=== PATIENT | male | born 1955 | race Hispanic/Latino ===

== ENCOUNTER 2020-07-29 08:55 | Inpatient (IN) | payer OTHER ==
[~2020-07-29] VITALS: Ht 175.3 cm; Wt 94.3 kg
[2020-07-29] MEDS ORDERED: 0.9%NACL 100ML 100 ML IV ONE (09:20)
[2020-07-29] MEDS ORDERED: CEFTRIAXONE 2GM VIAL ONE (09:20)
[2020-07-29] MEDS ORDERED: DEXAMETHASONE SOD PHOSPHATE 10MG/ML 1ML VIAL ONE (09:20)
[2020-07-29] MEDS ORDERED: AZITHROMYCIN 500MG+NS 250ML 250 ML IV ONE (09:20)
[2020-07-29 09:27] LABS: BASOPHILS % (AUTO) 0.2 % (0.0-5.0); HEMATOCRIT 42.5 % (42-54); LYMPHOCYTES % (AUTO) 4.6 % (21.0-51.0); MEAN CORPUSCULAR HEMOGLOBIN 32.2 pg (27.0-33.0); MEAN CORPUSCULAR HGB CONC 35.1 g/dL (32.0-36.0); MEAN CORPUSCULAR VOLUME 91.8 fL (79-99); MONOCYTES % (AUTO) 4.8 % (3.0-13.0); NEUTROPHILS % (AUTO) 89.8 % (40.0-77.0); PLATELET COUNT (AUTO) 115 K/uL (130-400); RED BLOOD CELL COUNT(AUTO) 4.63 MIL/uL (4.50-6.20); RED CELL DISTRIBUTION WIDTH 13.7 % (11.0-15.5); WHITE BLOOD COUNT (AUTO) 10.8 K/uL (4.8-10.8)
[2020-07-29 09:32] LABS: INR 1.07 (0.85-1.15); PROTHROMBIN TIME 11.4 SEC (9.6-11.6)
[2020-07-29 09:33] LABS: PARTIAL THROMBOPLASTIN TIME 27.3 SEC (26.3-35.5)
[2020-07-29] MEDS ORDERED: 0.9%NACL 1000ML 1,000 ML IV ONE (09:37)
[2020-07-29 09:45] LABS: CREATININE 1.4 mg/dL (0.5-1.5); POTASSIUM 3.9 mmol/L (3.5-5.1)
[2020-07-29 09:46] LABS: ALBUMIN 2.7 g/dL (3.5-5.0); BILIRUBIN,TOTAL 1.8 mg/dL (0.2-1.0); TROPONIN I 0.48 ng/mL (0.00-0.06)
[2020-07-29 09:51] LABS: APPEARANCE,URINE Cloudy (CLEAR); BILIRUBIN,URINE Large (NEGATIVE); COLOR,URINE Dark Yellow (YELLOW); GLUCOSE, URINE (UA) TRACE mg/dL (NEGATIVE); KETONES,URINE Trace mg/dL (NEGATIVE); LEUKOCYTE ESTERASE ,URINE Trace (NEGATIVE); NITRATE,URINE Negative (NEGATIVE); OCCULT BLOOD,URINE Moderate (NEGATIVE); PH,URINE 5.5 (5.0-8.0); PROTEIN,URINE 300 mg/dL (NEGATIVE)
[2020-07-29 10:00] LABS: MUCUS,URINE Many LPF (None Seen)
[2020-07-29 10:01] LABS: RBC,URINE 0-1 /HPF (0-1)
[2020-07-29 10:02] LABS: BACTERIA,URINE Few /HPF (None Seen); WBC,URINE 0-1 /HPF (0-1)
[2020-07-29] MEDS: CEFTRIAXONE 1G VIAL IVP SCH ×2 (11:00→23:00)
[2020-07-29] MEDS ORDERED: ERGOCALCIFEROL (VITAMIN D2) 50,000 UNIT CAPSULE PO SCH (11:00)
[2020-07-29] MEDS: 0.9%NACL 1000ML 1,000 ML IV SCH (11:00)
[2020-07-29] MEDS ORDERED: LABETALOL 20MG SYG IV PRN (11:00)
[2020-07-29] MEDS ORDERED: HYDRALAZINE 20MG/ML VIAL IV PRN (11:00)
[2020-07-29 11:25] LABS: AMYLASE 51 U/L (25-115); LIPASE 105 U/L (114-286)
[2020-07-29 11:36] LABS: ABG BASE EXCESS -0.2 mmol/L (-2.0-3.0); ABG HCO3 22.6 mmol/L (21.0-28.0); ABG OXYGEN SATURATION 91.8 % (95.0-99.0); ABG PCO2 32 mmHg (35-48)
[2020-07-29] MEDS ORDERED: MAGNESIUM 2GM PREMIX 50ML 50 ML IV PRN (14:45)
[2020-07-29] MEDS ORDERED: GLUCAGON 1MG KIT 1 MG ML IM PRN (14:45)
[2020-07-29] MEDS ORDERED: DEXTROSE 50%-WATER 50 ML DISP.SYRIN IV PRN (14:45)
[2020-07-29] MEDS: INSULIN HUMULIN R 100 UNIT/ML 3ML SQ SCH ×2 (16:30→21:00)
[2020-07-29] MEDS ORDERED: ASCORBIC ACID 500 MG TAB ONE (18:01)
[2020-07-29] MEDS ORDERED: ZINC SULFATE 220 CAPSULE ONE (18:01)
[2020-07-29] MEDS: DOXYCYCLINE HYCLATE 100 MG TABLET PO SCH (21:00)
[2020-07-29] MEDS: FAMOTIDINE 20MG TAB PO SCH (21:00)
[2020-07-29] MEDS: ENOXAPARIN SODIUM 120 MG/0.8ML SQ SCH (21:00)
[2020-07-29] MEDS ORDERED: ENOXAPARIN SODIUM 1 MG/KG SQ SCH (21:00)
[2020-07-29] MEDS ORDERED: FAMOTIDINE 20MG TAB ONE (21:53)
[2020-07-29] MEDS ORDERED: DOXYCYCLINE 100MG+NS 250ML 250 ML IV ONE (21:54)
[2020-07-29] MEDS ORDERED: ENOXAPARIN SODIUM 120 MG/0.8ML SQ ONE (21:55)
[2020-07-30 04:40] LABS: BASOPHILS % (AUTO) 0.1 % (0.0-5.0); HEMATOCRIT 41.5 % (42-54); LYMPHOCYTES % (AUTO) 4.8 % (21.0-51.0); MEAN CORPUSCULAR HEMOGLOBIN 31.7 pg (27.0-33.0); MEAN CORPUSCULAR HGB CONC 34.5 g/dL (32.0-36.0); MONOCYTES % (AUTO) 5.1 % (3.0-13.0); NEUTROPHILS % (AUTO) 89.4 % (40.0-77.0); PLATELET COUNT (AUTO) 124 K/uL (130-400); RED BLOOD CELL COUNT(AUTO) 4.51 MIL/uL (4.50-6.20); RED CELL DISTRIBUTION WIDTH 13.8 % (11.0-15.5); WHITE BLOOD COUNT (AUTO) 9.5 K/uL (4.8-10.8)
[2020-07-30 05:13] LABS: ALBUMIN 2.3 g/dL (3.5-5.0); BILIRUBIN,DIRECT 0.2 mg/dL (0.0-0.3); BILIRUBIN,TOTAL 0.8 mg/dL (0.2-1.0); CREATININE 1.1 mg/dL (0.5-1.5); MAGNESIUM 2.3 mg/dL (1.80-2.40); PHOSPHORUS 2.4 mg/dL (2.5-4.9); POTASSIUM 4.4 mmol/L (3.5-5.1); TOTAL PROTEIN, SERUM 6.7 g/dL (6.0-8.3)
[2020-07-30 05:34] LABS: CRP QUANTITATIVE 362.9 mg/L (0.00-9.0)
[2020-07-30] MEDS: 0.9%NACL 1000ML 1,000 ML IV SCH (07:00)
[2020-07-30] MEDS: INSULIN HUMULIN R 100 UNIT/ML 3ML SQ SCH ×4 (07:30→21:00)
[2020-07-30] MEDS ORDERED: DEXAMETHASONE SOD PHOSPHATE 10MG/ML 1ML VIAL ONE (08:36)
[2020-07-30] MEDS ORDERED: ASCORBIC ACID 500 MG TAB ONE (08:36)
[2020-07-30] MEDS ORDERED: DOXYCYCLINE HYCLATE 100 MG TABLET PO ONE (08:36)
[2020-07-30] MEDS ORDERED: ENOXAPARIN SODIUM 120 MG/0.8ML SQ ONE ×2 (08:37→21:11)
[2020-07-30] MEDS ORDERED: FAMOTIDINE 20MG TAB ONE ×2 (08:37→21:10)
[2020-07-30] MEDS ORDERED: ZINC SULFATE 220 CAPSULE ONE (08:37)
[2020-07-30] MEDS: FAMOTIDINE 20MG TAB PO SCH ×2 (09:00→21:00)
[2020-07-30] MEDS: ENOXAPARIN SODIUM 120 MG/0.8ML SQ SCH ×2 (09:00→21:00)
[2020-07-30] MEDS: ASPIRIN 81MG CHEW TAB PO SCH (09:00)
[2020-07-30] MEDS: DEXAMETHASONE SOD PHOSPHATE 4 MG/ML 1ML VIAL IVP SCH (09:00)
[2020-07-30] MEDS: ASCORBIC ACID 500 MG TAB PO SCH (09:00)
[2020-07-30] MEDS: ZINC SULFATE 220 CAPSULE PO SCH (09:00)
[2020-07-30] MEDS: DOXYCYCLINE HYCLATE 100 MG TABLET PO SCH ×2 (09:00→21:00)
[2020-07-30] MEDS: CEFTRIAXONE 1G VIAL IVP SCH ×2 (11:00→23:00)
[2020-07-30] MEDS ORDERED: CEFTRIAXONE 1G VIAL ONE ×2 (11:14→22:52)
[2020-07-30] MEDS ORDERED: INSULIN HUMULIN R 100 UNIT/ML 3ML ONE (12:14)
[2020-07-30] MEDS ORDERED: ACETAMINOPHEN 325 MG TAB ONE (18:37)
[2020-07-30] MEDS ORDERED: DOXYCYCLINE 100MG+NS 250ML 250 ML IV ONE (21:10)
[2020-07-31] MEDS: 0.9%NACL 1000ML 1,000 ML IV SCH ×2 (03:00→21:30)
[2020-07-31] MEDS: INSULIN HUMULIN R 100 UNIT/ML 3ML SQ SCH ×4 (07:30→21:00)
[2020-07-31] MEDS ORDERED: ASPIRIN 81MG CHEW TAB ONE (07:51)
[2020-07-31] MEDS ORDERED: DEXAMETHASONE SOD PHOSPHATE 10MG/ML 1ML VIAL ONE (07:52)
[2020-07-31] MEDS ORDERED: DOXYCYCLINE HYCLATE 100 MG TABLET PO ONE (07:52)
[2020-07-31] MEDS ORDERED: FAMOTIDINE 20MG TAB ONE (07:53)
[2020-07-31] MEDS ORDERED: ZINC SULFATE 220 CAPSULE ONE (07:53)
[2020-07-31] MEDS ORDERED: ASCORBIC ACID 500 MG TAB ONE (07:53)
[2020-07-31] MEDS ORDERED: ENOXAPARIN SODIUM 120 MG/0.8ML SQ ONE (07:54)
[2020-07-31] MEDS ORDERED: CEFTRIAXONE 1G VIAL ONE (07:54)
[2020-07-31] MEDS: ENOXAPARIN SODIUM 120 MG/0.8ML SQ SCH ×2 (09:00→21:00)
[2020-07-31] MEDS: DEXAMETHASONE SOD PHOSPHATE 4 MG/ML 1ML VIAL IVP SCH (09:00)
[2020-07-31] MEDS: ZINC SULFATE 220 CAPSULE PO SCH (09:00)
[2020-07-31] MEDS: ASCORBIC ACID 500 MG TAB PO SCH (09:00)
[2020-07-31] MEDS: FAMOTIDINE 20MG TAB PO SCH ×2 (09:00→21:27)
[2020-07-31] MEDS: DOXYCYCLINE HYCLATE 100 MG TABLET PO SCH ×2 (09:00→21:27)
[2020-07-31] MEDS: ASPIRIN 81MG CHEW TAB PO SCH (09:00)
[2020-07-31] MEDS: CEFTRIAXONE 1G VIAL IVP SCH ×2 (11:00→21:27)
[2020-07-31 12:55] VITALS: BP 125/74
[2020-07-31 16:30] VITALS: BP 114/74
[2020-07-31 20:00] VITALS: BP 114/81
[2020-07-31 23:58] VITALS: BP 129/75
[2020-08-01] MEDS: ACETAMINOPHEN 325 MG TAB PO PRN (00:55)
[2020-08-01 03:54] LABS: ABG HCO3 24.2 mmol/L (21.0-28.0); ABG PCO2 35 mmHg (35-48)
[2020-08-01 04:00] VITALS: BP 104/63
[2020-08-01 04:51] LABS: HEMATOCRIT 40.9 % (42-54); MEAN CORPUSCULAR HEMOGLOBIN 31.6 pg (27.0-33.0); MEAN CORPUSCULAR HGB CONC 34.2 g/dL (32.0-36.0); MEAN CORPUSCULAR VOLUME 92.3 fL (79-99); RED BLOOD CELL COUNT(AUTO) 4.43 MIL/uL (4.50-6.20); RED CELL DISTRIBUTION WIDTH 13.9 % (11.0-15.5); WHITE BLOOD COUNT (AUTO) 6.1 K/uL (4.8-10.8)
[2020-08-01 05:17] LABS: BILIRUBIN,TOTAL 0.9 mg/dL (0.2-1.0); MAGNESIUM 2.1 mg/dL (1.80-2.40); PHOSPHORUS 2.7 mg/dL (2.5-4.9); POTASSIUM 4.5 mmol/L (3.5-5.1); TOTAL PROTEIN, SERUM 5.9 g/dL (6.0-8.3)
[2020-08-01] MEDS: INSULIN HUMULIN R 100 UNIT/ML 3ML SQ SCH ×4 (05:59→20:49)
[2020-08-01 08:30] VITALS: BP 114/62
[2020-08-01] MEDS ORDERED: DRONABINOL 2.5 MG CAP PO SCH ×2 (09:00→12:45)
[2020-08-01] MEDS: DOXYCYCLINE HYCLATE 100 MG TABLET PO SCH ×2 (09:03→20:48)
[2020-08-01] MEDS: ASCORBIC ACID 500 MG TAB PO SCH (09:03)
[2020-08-01] MEDS: ZINC SULFATE 220 CAPSULE PO SCH (09:03)
[2020-08-01] MEDS: FAMOTIDINE 20MG TAB PO SCH ×2 (09:04→20:48)
[2020-08-01] MEDS: ENOXAPARIN SODIUM 120 MG/0.8ML SQ SCH ×2 (09:04→20:48)
[2020-08-01] MEDS: ASPIRIN 81MG CHEW TAB PO SCH (09:04)
[2020-08-01] MEDS: DEXAMETHASONE SOD PHOSPHATE 4 MG/ML 1ML VIAL IVP SCH (09:05)
[2020-08-01] MEDS: CEFTRIAXONE 1G VIAL IVP SCH ×2 (11:58→20:44)
[2020-08-01 12:41] VITALS: BP 111/60
[2020-08-01] MEDS: FUROSEMIDE 20MG VIAL IV SCH (15:44)
[2020-08-01 16:51] VITALS: BP 97/49
[2020-08-01 20:00] VITALS: BP 112/64
[2020-08-01] MEDS: PHARMACY COMMUNICATION MISC SCH (23:00)
[2020-08-02] VITALS (7 sets, daily range): BP systolic 93–122; BP diastolic 54–73
[2020-08-02] MEDS: FUROSEMIDE 20MG VIAL IV SCH ×2 (03:23→15:56)
[2020-08-02 05:22] LABS: MEAN CORPUSCULAR HEMOGLOBIN 31.2 pg (27.0-33.0); MEAN CORPUSCULAR HGB CONC 34.3 g/dL (32.0-36.0); MEAN CORPUSCULAR VOLUME 90.9 fL (79-99); RED BLOOD CELL COUNT(AUTO) 4.62 MIL/uL (4.50-6.20); RED CELL DISTRIBUTION WIDTH 13.7 % (11.0-15.5); WHITE BLOOD COUNT (AUTO) 5.8 K/uL (4.8-10.8)
[2020-08-02 05:41] LABS: CREATININE 1.1 mg/dL (0.5-1.5); POTASSIUM 4.3 mmol/L (3.5-5.1)
[2020-08-02] MEDS: INSULIN HUMULIN R 100 UNIT/ML 3ML SQ SCH ×4 (06:00→19:59)
[2020-08-02] MEDS: ASPIRIN 81MG CHEW TAB PO SCH (08:28)
[2020-08-02] MEDS: ENOXAPARIN SODIUM 120 MG/0.8ML SQ SCH ×2 (08:28→19:59)
[2020-08-02] MEDS: ASCORBIC ACID 500 MG TAB PO SCH (08:28)
[2020-08-02] MEDS: DOXYCYCLINE HYCLATE 100 MG TABLET PO SCH ×2 (08:28→19:58)
[2020-08-02] MEDS: FAMOTIDINE 20MG TAB PO SCH ×2 (08:28→19:58)
[2020-08-02] MEDS: ZINC SULFATE 220 CAPSULE PO SCH (08:28)
[2020-08-02] MEDS: DEXAMETHASONE SOD PHOSPHATE 4 MG/ML 1ML VIAL IVP SCH (08:29)
[2020-08-02] MEDS: CEFTRIAXONE 1G VIAL IVP SCH ×2 (13:26→23:05)
[2020-08-02] MEDS: DRONABINOL 2.5 MG CAP PO SCH (20:05)
[2020-08-02] MEDS: PHARMACY COMMUNICATION MISC SCH (23:00)
[2020-08-03] MEDS: FUROSEMIDE 20MG VIAL IV SCH (02:58)
[2020-08-03 03:36] VITALS: BP 101/54
[2020-08-03 05:27] LABS: HEMATOCRIT 42.7 % (42-54); MEAN CORPUSCULAR HEMOGLOBIN 31.6 pg (27.0-33.0); MEAN CORPUSCULAR HGB CONC 34.7 g/dL (32.0-36.0); MEAN CORPUSCULAR VOLUME 91.2 fL (79-99); RED BLOOD CELL COUNT(AUTO) 4.68 MIL/uL (4.50-6.20); RED CELL DISTRIBUTION WIDTH 13.5 % (11.0-15.5); WHITE BLOOD COUNT (AUTO) 6.2 K/uL (4.8-10.8)
[2020-08-03 05:52] LABS: POTASSIUM 4.7 mmol/L (3.5-5.1)
[2020-08-03 06:02] LABS: CRP QUANTITATIVE 400.7 mg/L (0.00-9.0)
[2020-08-03] MEDS: PHARMACY COMMUNICATION MISC SCH ×2 (06:07→21:00)
[2020-08-03 06:52] LABS: CREATININE 1.2 mg/dL (0.5-1.5)
[2020-08-03 07:00] LABS: ABG BASE EXCESS 1.2 mmol/L (-2.0-3.0); ABG HCO3 24.7 mmol/L (21.0-28.0); ABG OXYGEN SATURATION 93.1 % (95.0-99.0); ABG PCO2 36 mmHg (35-48)
[2020-08-03] MEDS: INSULIN HUMULIN R 100 UNIT/ML 3ML SQ SCH ×4 (07:03→21:00)
[2020-08-03] MEDS: DIAZEPAM 5 MG TABLET PO PRN (08:30)
[2020-08-03] MEDS: ENOXAPARIN SODIUM 120 MG/0.8ML SQ SCH ×2 (08:30→22:11)
[2020-08-03] MEDS: ZINC SULFATE 220 CAPSULE PO SCH (08:31)
[2020-08-03] MEDS: DEXAMETHASONE SOD PHOSPHATE 4 MG/ML 1ML VIAL IVP SCH ×3 (08:31→22:10)
[2020-08-03] MEDS: DRONABINOL 2.5 MG CAP PO SCH ×2 (08:31→22:10)
[2020-08-03] MEDS: FAMOTIDINE 20MG TAB PO SCH ×2 (08:31→22:10)
[2020-08-03] MEDS: ASCORBIC ACID 500 MG TAB PO SCH (08:31)
[2020-08-03] MEDS: ASPIRIN 81MG CHEW TAB PO SCH (08:31)
[2020-08-03] MEDS: DOXYCYCLINE HYCLATE 100 MG TABLET PO SCH ×2 (08:31→22:17)
[2020-08-03 08:52] VITALS: BP 110/45
[2020-08-03] MEDS: CEFTRIAXONE 1G VIAL IVP SCH (11:24)
[2020-08-03] MEDS: MEROPENEM 500 MG VIAL IVP SCH ×2 (11:25→17:45)
[2020-08-03] MEDS: ACETAMINOPHEN 325 MG TAB PO PRN ×2 (11:34→12:42)
[2020-08-03 11:53] VITALS: BP 99/55
[2020-08-03 16:00] VITALS: BP 131/75
[2020-08-03 20:00] VITALS: BP 120/75
[2020-08-03 20:18] LABS: INR 1.06 (0.85-1.15); PROTHROMBIN TIME 11.3 SEC (9.6-11.6)
[2020-08-04] MEDS: MEROPENEM 500 MG VIAL IVP SCH ×3 (01:55→18:09)
[2020-08-04 03:29] VITALS: BP 93/56
[2020-08-04 06:03] LABS: HEMATOCRIT 41.4 % (42-54); MEAN CORPUSCULAR HEMOGLOBIN 31.1 pg (27.0-33.0); MEAN CORPUSCULAR HGB CONC 34.3 g/dL (32.0-36.0); MEAN CORPUSCULAR VOLUME 90.6 fL (79-99); RED BLOOD CELL COUNT(AUTO) 4.57 MIL/uL (4.50-6.20); RED CELL DISTRIBUTION WIDTH 13.3 % (11.0-15.5)
[2020-08-04 06:23] LABS: POTASSIUM 4.8 mmol/L (3.5-5.1)
[2020-08-04] MEDS: PHARMACY COMMUNICATION MISC SCH ×2 (07:00→21:37)
[2020-08-04] MEDS: INSULIN HUMULIN R 100 UNIT/ML 3ML SQ SCH ×4 (07:30→21:00)
[2020-08-04 07:40] VITALS: BP 97/58
[2020-08-04 11:00] VITALS: BP 115/63
[2020-08-04] MEDS: DEXAMETHASONE SOD PHOSPHATE 4 MG/ML 1ML VIAL IVP SCH ×2 (12:49→21:27)
[2020-08-04] MEDS: ASPIRIN 81MG CHEW TAB PO SCH (12:52)
[2020-08-04] MEDS: DOXYCYCLINE HYCLATE 100 MG TABLET PO SCH ×2 (12:53→21:27)
[2020-08-04] MEDS: DRONABINOL 2.5 MG CAP PO SCH ×2 (12:53→21:27)
[2020-08-04] MEDS: ASCORBIC ACID 500 MG TAB PO SCH (12:54)
[2020-08-04] MEDS: FAMOTIDINE 20MG TAB PO SCH ×2 (12:54→21:27)
[2020-08-04] MEDS: ZINC SULFATE 220 CAPSULE PO SCH (12:54)
[2020-08-04] MEDS: ENOXAPARIN SODIUM 120 MG/0.8ML SQ SCH ×2 (12:55→21:28)
[2020-08-04 16:00] VITALS: BP 99/63
[2020-08-04 19:27] VITALS: BP 148/85
[2020-08-04 23:55] VITALS: BP 111/77
[2020-08-05] MEDS: MEROPENEM 500 MG VIAL IVP SCH ×3 (00:35→17:01)
[2020-08-05 03:41] VITALS: BP 121/73
[2020-08-05] MEDS: PHARMACY COMMUNICATION MISC SCH ×2 (04:07→20:06)
[2020-08-05 06:11] LABS: HEMATOCRIT 41.4 % (42-54); MEAN CORPUSCULAR HEMOGLOBIN 31.6 pg (27.0-33.0); MEAN CORPUSCULAR HGB CONC 34.5 g/dL (32.0-36.0); MEAN CORPUSCULAR VOLUME 91.4 fL (79-99); RED BLOOD CELL COUNT(AUTO) 4.53 MIL/uL (4.50-6.20); RED CELL DISTRIBUTION WIDTH 13.3 % (11.0-15.5); WHITE BLOOD COUNT (AUTO) 6.6 K/uL (4.8-10.8)
[2020-08-05] MEDS: INSULIN HUMULIN R 100 UNIT/ML 3ML SQ SCH ×4 (06:39→19:44)
[2020-08-05 06:48] LABS: POTASSIUM 4.7 mmol/L (3.5-5.1)
[2020-08-05 07:11] LABS: ABG BASE EXCESS 0.7 mmol/L (-2.0-3.0); ABG HCO3 23.5 mmol/L (21.0-28.0); ABG OXYGEN SATURATION 86.5 % (95.0-99.0); ABG PCO2 33 mmHg (35-48)
[2020-08-05 07:57] VITALS: BP 114/72
[2020-08-05] MEDS: ASCORBIC ACID 500 MG TAB PO SCH (08:05)
[2020-08-05] MEDS: ASPIRIN 81MG CHEW TAB PO SCH (08:05)
[2020-08-05] MEDS: FAMOTIDINE 20MG TAB PO SCH ×2 (08:05→20:10)
[2020-08-05] MEDS: DRONABINOL 2.5 MG CAP PO SCH ×2 (08:05→20:10)
[2020-08-05] MEDS: DEXAMETHASONE SOD PHOSPHATE 4 MG/ML 1ML VIAL IVP SCH ×2 (08:05→20:09)
[2020-08-05] MEDS: ZINC SULFATE 220 CAPSULE PO SCH (08:05)
[2020-08-05] MEDS: DOXYCYCLINE HYCLATE 100 MG TABLET PO SCH (08:05)
[2020-08-05] MEDS: ENOXAPARIN SODIUM 120 MG/0.8ML SQ SCH ×2 (08:06→20:10)
[2020-08-05 11:13] VITALS: BP 112/70
[2020-08-05 15:40] VITALS: BP 110/71
[2020-08-05 19:00] VITALS: BP 108/62
[2020-08-05 23:00] VITALS: BP 110/75
[2020-08-06] MEDS: PHARMACY COMMUNICATION MISC SCH ×3 (00:44→23:00)
[2020-08-06] MEDS: MEROPENEM 500 MG VIAL IVP SCH ×3 (00:44→17:25)
[2020-08-06 03:00] VITALS: BP 98/60
[2020-08-06 05:14] LABS: HEMATOCRIT 40.8 % (42-54); MEAN CORPUSCULAR HEMOGLOBIN 31.3 pg (27.0-33.0); MEAN CORPUSCULAR HGB CONC 34.3 g/dL (32.0-36.0); MEAN CORPUSCULAR VOLUME 91.3 fL (79-99); RED BLOOD CELL COUNT(AUTO) 4.47 MIL/uL (4.50-6.20); RED CELL DISTRIBUTION WIDTH 13.3 % (11.0-15.5); WHITE BLOOD COUNT (AUTO) 8.5 K/uL (4.8-10.8)
[2020-08-06 05:30] LABS: CREATININE 0.9 mg/dL (0.5-1.5)
[2020-08-06] MEDS: INSULIN HUMULIN R 100 UNIT/ML 3ML SQ SCH ×4 (06:08→21:00)
[2020-08-06 07:33] LABS: ABG BASE EXCESS 2.4 mmol/L (-2.0-3.0); ABG HCO3 25.6 mmol/L (21.0-28.0); ABG OXYGEN SATURATION 80.2 % (95.0-99.0); ABG PCO2 35 mmHg (35-48)
[2020-08-06 08:00] VITALS: BP 112/72
[2020-08-06] MEDS: FAMOTIDINE 20MG TAB PO SCH ×2 (08:56→22:11)
[2020-08-06] MEDS: ZINC SULFATE 220 CAPSULE PO SCH (08:56)
[2020-08-06] MEDS: ASPIRIN 81MG CHEW TAB PO SCH (08:56)
[2020-08-06] MEDS: ASCORBIC ACID 500 MG TAB PO SCH (08:56)
[2020-08-06] MEDS: ENOXAPARIN SODIUM 120 MG/0.8ML SQ SCH ×2 (08:56→22:17)
[2020-08-06] MEDS: DRONABINOL 2.5 MG CAP PO SCH ×2 (08:56→22:11)
[2020-08-06] MEDS: DEXAMETHASONE SOD PHOSPHATE 4 MG/ML 1ML VIAL IVP SCH ×2 (08:57→22:10)
[2020-08-06 12:00] VITALS: BP 98/64
[2020-08-06 16:00] VITALS: BP 120/66
[2020-08-06 20:00] VITALS: BP 118/72
[2020-08-07] VITALS (7 sets, daily range): BP systolic 91–135; BP diastolic 60–71
[2020-08-07] MEDS: MEROPENEM 500 MG VIAL IVP SCH ×3 (04:12→16:43)
[2020-08-07 04:13] LABS: ABG BASE EXCESS -0.8 mmol/L (-2.0-3.0); ABG HCO3 22.7 mmol/L (21.0-28.0); ABG OXYGEN SATURATION 91.7 % (95.0-99.0); ABG PCO2 34 mmHg (35-48)
[2020-08-07 04:58] LABS: HEMATOCRIT 42.2 % (42-54); MEAN CORPUSCULAR HEMOGLOBIN 31.8 pg (27.0-33.0); MEAN CORPUSCULAR HGB CONC 34.6 g/dL (32.0-36.0); MEAN CORPUSCULAR VOLUME 91.9 fL (79-99); RED BLOOD CELL COUNT(AUTO) 4.59 MIL/uL (4.50-6.20); RED CELL DISTRIBUTION WIDTH 13.6 % (11.0-15.5); WHITE BLOOD COUNT (AUTO) 9.6 K/uL (4.8-10.8)
[2020-08-07 05:30] LABS: ALBUMIN 1.8 g/dL (3.5-5.0); MAGNESIUM 2.3 mg/dL (1.80-2.40); TOTAL PROTEIN, SERUM 6.4 g/dL (6.0-8.3)
[2020-08-07 06:34] LABS: CRP QUANTITATIVE 288.8 mg/L (0.00-9.0)
[2020-08-07] MEDS: PHARMACY COMMUNICATION MISC SCH ×3 (07:00→23:00)
[2020-08-07] MEDS: INSULIN HUMULIN R 100 UNIT/ML 3ML SQ SCH ×4 (07:30→21:00)
[2020-08-07] MEDS: ASPIRIN 81MG CHEW TAB PO SCH (08:27)
[2020-08-07] MEDS: DEXAMETHASONE SOD PHOSPHATE 4 MG/ML 1ML VIAL IVP SCH ×2 (08:27→21:36)
[2020-08-07] MEDS: DRONABINOL 2.5 MG CAP PO SCH ×2 (08:28→21:36)
[2020-08-07] MEDS: FAMOTIDINE 20MG TAB PO SCH ×2 (08:28→21:37)
[2020-08-07] MEDS: ASCORBIC ACID 500 MG TAB PO SCH (08:28)
[2020-08-07] MEDS: ZINC SULFATE 220 CAPSULE PO SCH (08:28)
[2020-08-07] MEDS: ENOXAPARIN SODIUM 120 MG/0.8ML SQ SCH ×2 (08:29→21:38)
[2020-08-07 08:42] LABS: ABG BASE EXCESS 0.7 mmol/L (-2.0-3.0); ABG HCO3 24.2 mmol/L (21.0-28.0); ABG OXYGEN SATURATION 76.7 % (95.0-99.0); ABG PCO2 36 mmHg (35-48)
[2020-08-08] MEDS: MEROPENEM 500 MG VIAL IVP SCH ×3 (00:47→17:15)
[2020-08-08 03:08] VITALS: BP 101/69
[2020-08-08 06:39] LABS: BASOPHILS % (AUTO) 0.2 % (0.0-5.0); HEMATOCRIT 45.5 % (42-54); LYMPHOCYTES % (AUTO) 2.8 % (21.0-51.0); MEAN CORPUSCULAR HGB CONC 34.7 g/dL (32.0-36.0); MEAN CORPUSCULAR VOLUME 92.1 fL (79-99); MONOCYTES % (AUTO) 0.9 % (3.0-13.0); NEUTROPHILS % (AUTO) 95.1 % (40.0-77.0); PLATELET COUNT (AUTO) 166 K/uL (130-400); RED BLOOD CELL COUNT(AUTO) 4.94 MIL/uL (4.50-6.20); RED CELL DISTRIBUTION WIDTH 13.5 % (11.0-15.5); WHITE BLOOD COUNT (AUTO) 12.6 K/uL (4.8-10.8)
[2020-08-08] MEDS: PHARMACY COMMUNICATION MISC SCH ×2 (07:00→14:48)
[2020-08-08] MEDS: INSULIN HUMULIN R 100 UNIT/ML 3ML SQ SCH ×4 (07:30→21:00)
[2020-08-08 07:32] LABS: B-TYPE NATRIURETIC PEPTIDE 28 pg/mL (0-100)
[2020-08-08 08:20] VITALS: BP 126/65
[2020-08-08 08:28] LABS: ALBUMIN 1.8 g/dL (3.5-5.0); BILIRUBIN,TOTAL 0.7 mg/dL (0.2-1.0); CREATININE 0.8 mg/dL (0.5-1.5); MAGNESIUM 2.4 mg/dL (1.80-2.40); TOTAL PROTEIN, SERUM 6.5 g/dL (6.0-8.3)
[2020-08-08] MEDS: ZINC SULFATE 220 CAPSULE PO SCH ×2 (09:00→09:18)
[2020-08-08] MEDS: ASCORBIC ACID 500 MG TAB PO SCH ×2 (09:00→09:19)
[2020-08-08] MEDS: ASPIRIN 81MG CHEW TAB PO SCH ×2 (09:00→09:18)
[2020-08-08] MEDS: FAMOTIDINE 20MG TAB PO SCH ×3 (09:00→22:11)
[2020-08-08] MEDS: DRONABINOL 2.5 MG CAP PO SCH ×3 (09:00→22:11)
[2020-08-08] MEDS: ENOXAPARIN SODIUM 120 MG/0.8ML SQ SCH ×2 (09:19→21:00)
[2020-08-08] MEDS: DEXAMETHASONE SOD PHOSPHATE 4 MG/ML 1ML VIAL IVP SCH ×2 (09:26→22:11)
[2020-08-08 12:15] VITALS: BP 110/62
[2020-08-08 16:07] VITALS: BP 105/73
[2020-08-08 19:59] VITALS: BP 98/64
[2020-08-08 23:57] VITALS: BP 95/68
[2020-08-09] MEDS: MEROPENEM 500 MG VIAL IVP SCH (01:32)
[2020-08-09 03:19] VITALS: BP 92/56
[2020-08-09 04:27] LABS: ABG HCO3 25.1 mmol/L (21.0-28.0); ABG OXYGEN SATURATION 92.1 % (95.0-99.0); ABG PCO2 35 mmHg (35-48)
[2020-08-09 05:09] LABS: BASOPHILS % (AUTO) 0.2 % (0.0-5.0); HEMATOCRIT 46.8 % (42-54); LYMPHOCYTES % (AUTO) 1.8 % (21.0-51.0); MEAN CORPUSCULAR HGB CONC 33.5 g/dL (32.0-36.0); MEAN CORPUSCULAR VOLUME 92.3 fL (79-99); NEUTROPHILS % (AUTO) 96.3 % (40.0-77.0); PLATELET COUNT (AUTO) 159 K/uL (130-400); RED BLOOD CELL COUNT(AUTO) 5.07 MIL/uL (4.50-6.20); RED CELL DISTRIBUTION WIDTH 13.6 % (11.0-15.5); WHITE BLOOD COUNT (AUTO) 12.7 K/uL (4.8-10.8)
[2020-08-09 05:25] LABS: ALBUMIN 1.7 g/dL (3.5-5.0); BILIRUBIN,TOTAL 0.7 mg/dL (0.2-1.0); CREATININE 0.9 mg/dL (0.5-1.5); MAGNESIUM 2.4 mg/dL (1.80-2.40); PHOSPHORUS 3.4 mg/dL (2.5-4.9); POTASSIUM 5.3 mmol/L (3.5-5.1); TOTAL PROTEIN, SERUM 6.3 g/dL (6.0-8.3)
[2020-08-09] MEDS: INSULIN HUMULIN R 100 UNIT/ML 3ML SQ SCH ×5 (06:29→21:32)
[2020-08-09 08:00] VITALS: BP 117/67
[2020-08-09] MEDS: DEXAMETHASONE SOD PHOSPHATE 4 MG/ML 1ML VIAL IVP SCH ×2 (10:18→20:59)
[2020-08-09] MEDS: ASPIRIN 81MG CHEW TAB PO SCH (10:18)
[2020-08-09] MEDS: ASCORBIC ACID 500 MG TAB PO SCH (10:19)
[2020-08-09] MEDS: FAMOTIDINE 20MG TAB PO SCH ×2 (10:19→21:00)
[2020-08-09] MEDS: DRONABINOL 2.5 MG CAP PO SCH (10:19)
[2020-08-09] MEDS: ZINC SULFATE 220 CAPSULE PO SCH (10:19)
[2020-08-09] MEDS: ENOXAPARIN SODIUM 120 MG/0.8ML SQ SCH ×2 (10:20→21:01)
[2020-08-09 12:00] VITALS: BP 135/74
[2020-08-09 16:00] VITALS: BP 107/69
[2020-08-09] MEDS: KAYEXALATE 15GM/60ML NG SCH (16:47)
[2020-08-09 20:53] VITALS: BP 103/42
[2020-08-10] VITALS (19 sets, daily range): BP systolic 66–118; BP diastolic 24–85
[2020-08-10] MEDS: DIAZEPAM 5 MG TABLET PO PRN (02:56)
[2020-08-10 04:43] LABS: HEMATOCRIT 49.3 % (42-54); MEAN CORPUSCULAR HEMOGLOBIN 31.4 pg (27.0-33.0); MEAN CORPUSCULAR HGB CONC 33.7 g/dL (32.0-36.0); MEAN CORPUSCULAR VOLUME 93.4 fL (79-99); RED BLOOD CELL COUNT(AUTO) 5.28 MIL/uL (4.50-6.20); RED CELL DISTRIBUTION WIDTH 13.7 % (11.0-15.5); WHITE BLOOD COUNT (AUTO) 12.5 K/uL (4.8-10.8)
[2020-08-10 05:11] LABS: CREATININE 1.1 mg/dL (0.5-1.5); POTASSIUM 4.9 mmol/L (3.5-5.1)
[2020-08-10] MEDS: FAMOTIDINE 20MG TAB PO SCH ×2 (08:49→23:00)
[2020-08-10] MEDS: ASCORBIC ACID 500 MG TAB PO SCH (08:49)
[2020-08-10] MEDS: ASPIRIN 81MG CHEW TAB PO SCH (08:49)
[2020-08-10] MEDS: ZINC SULFATE 220 CAPSULE PO SCH (08:49)
[2020-08-10] MEDS: DEXAMETHASONE SOD PHOSPHATE 4 MG/ML 1ML VIAL IVP SCH (08:50)
[2020-08-10] MEDS: ENOXAPARIN SODIUM 120 MG/0.8ML SQ SCH (08:50)
[2020-08-10] MEDS: KAYEXALATE 15GM/60ML NG SCH (08:58)
[2020-08-10] MEDS: INSULIN HUMULIN R 100 UNIT/ML 3ML SQ SCH ×3 (11:23→23:00)
[2020-08-10] MEDS ORDERED: ADENOSINE 6MG VIAL IV ONE (22:11)
[2020-08-10] MEDS ORDERED: PROPOFOL 1000 MG/100 ML 100 ML IV ONE (22:14)
[2020-08-10] MEDS ORDERED: MIDAZOLAM HCL 1 MG/ML 2ML VIAL ONE (22:15)
[2020-08-10] MEDS ORDERED: NOREPINEPHRIN 4MG/NS 250ML 250 ML IV ONE (22:52)
[2020-08-10] MEDS ORDERED: 0.9%NACL 1000ML 1,000 ML IV ONE (23:15)
[2020-08-10] MEDS ORDERED: PROPOFOL 1000 MG/100 ML 100 ML IV SCH (23:15)
[2020-08-10 23:32] LABS: ABG BASE EXCESS -2.9 mmol/L (-2.0-3.0); ABG HCO3 23.8 mmol/L (21.0-28.0); ABG OXYGEN SATURATION 93.1 % (95.0-99.0); ABG PCO2 48 mmHg (35-48)
[2020-08-11] VITALS (53 sets, daily range): BP systolic 11–125; BP diastolic 60–99
[2020-08-11] MEDS: DIAZEPAM 5 MG TABLET PO PRN (00:23)
[2020-08-11] MEDS: ENOXAPARIN SODIUM 120 MG/0.8ML SQ SCH ×3 (02:25→21:12)
[2020-08-11] MEDS: DEXAMETHASONE SOD PHOSPHATE 4 MG/ML 1ML VIAL IVP SCH ×3 (02:25→21:09)
[2020-08-11] MEDS: 0.9%NACL 1000ML 1,000 ML IV SCH ×2 (02:49→10:28)
[2020-08-11 04:02] LABS: ABG BASE EXCESS -0.7 mmol/L (-2.0-3.0); ABG HCO3 24.9 mmol/L (21.0-28.0); ABG OXYGEN SATURATION 96.6 % (95.0-99.0); ABG PCO2 44 mmHg (35-48)
[2020-08-11 05:23] LABS: BASOPHILS % (AUTO) 0.1 % (0.0-5.0); EOSINOPHILS % (AUTO) 0.1 % (0.0-8.0); HEMATOCRIT 48.9 % (42-54); LYMPHOCYTES % (AUTO) 2.6 % (21.0-51.0); MEAN CORPUSCULAR HEMOGLOBIN 30.8 pg (27.0-33.0); MEAN CORPUSCULAR HGB CONC 32.5 g/dL (32.0-36.0); MEAN CORPUSCULAR VOLUME 94.8 fL (79-99); MONOCYTES % (AUTO) 1.9 % (3.0-13.0); NEUTROPHILS % (AUTO) 94.5 % (40.0-77.0); PLATELET COUNT (AUTO) 159 K/uL (130-400); RED BLOOD CELL COUNT(AUTO) 5.16 MIL/uL (4.50-6.20); WHITE BLOOD COUNT (AUTO) 17.8 K/uL (4.8-10.8)
[2020-08-11 05:55] LABS: ALBUMIN 1.7 g/dL (3.5-5.0); BILIRUBIN,TOTAL 0.6 mg/dL (0.2-1.0); CREATININE 1.1 mg/dL (0.5-1.5); MAGNESIUM 2.6 mg/dL (1.80-2.40); PHOSPHORUS 4.9 mg/dL (2.5-4.9); POTASSIUM 4.9 mmol/L (3.5-5.1); TOTAL PROTEIN, SERUM 5.8 g/dL (6.0-8.3)
[2020-08-11] MEDS: INSULIN HUMULIN R 100 UNIT/ML 3ML SQ SCH ×4 (06:16→21:00)
[2020-08-11] MEDS: FAMOTIDINE 20MG TAB PO SCH ×2 (09:45→21:09)
[2020-08-11] MEDS: ZINC SULFATE 220 CAPSULE PO SCH (09:45)
[2020-08-11] MEDS: ASPIRIN 81MG CHEW TAB PO SCH (09:45)
[2020-08-11] MEDS: ASCORBIC ACID 500 MG TAB PO SCH (09:46)
[2020-08-11] MEDS ORDERED: FENTANYL CITRATE PF 0.05 MG/ML 1,000 MCG in 0.9%NACL 100ML 100 ML IVPB PRN (12:30)
[2020-08-11] MEDS: CHLORHEXIDINE GLUCONATE 473 ML MOUTHWASH MM SCH ×2 (12:30→17:52)
[2020-08-11] MEDS: ARTIFICAL TEARS SOL 15 ML OU SCH ×2 (12:30→17:53)
[2020-08-11] MEDS: KAYEXALATE 15GM/60ML NG SCH (13:30)
[2020-08-11] MEDS: FENTANYL 2500MCG+NS 250ML 250 ML IV PRN (15:30)
[2020-08-11] MEDS ORDERED: 0.9%NACL 1000ML 1,000 ML IV ONE (18:14)
[2020-08-12] VITALS (40 sets, daily range): BP systolic 88–127; BP diastolic 51–79
[2020-08-12] MEDS: ARTIFICAL TEARS SOL 15 ML OU SCH ×4 (01:05→18:25)
[2020-08-12] MEDS: CHLORHEXIDINE GLUCONATE 473 ML MOUTHWASH MM SCH ×4 (01:07→18:25)
[2020-08-12 03:34] LABS: ABG BASE EXCESS -1.1 mmol/L (-2.0-3.0); ABG HCO3 24.2 mmol/L (21.0-28.0); ABG OXYGEN SATURATION 97.3 % (95.0-99.0); ABG PCO2 43 mmHg (35-48)
[2020-08-12 04:07] LABS: BASOPHILS % (AUTO) 0.1 % (0.0-5.0); HEMATOCRIT 47.9 % (42-54); LYMPHOCYTES % (AUTO) 2.7 % (21.0-51.0); MEAN CORPUSCULAR HEMOGLOBIN 31.6 pg (27.0-33.0); MEAN CORPUSCULAR HGB CONC 32.8 g/dL (32.0-36.0); MEAN CORPUSCULAR VOLUME 96.4 fL (79-99); MONOCYTES % (AUTO) 1.4 % (3.0-13.0); NEUTROPHILS % (AUTO) 95.1 % (40.0-77.0); PLATELET COUNT (AUTO) 145 K/uL (130-400); RED BLOOD CELL COUNT(AUTO) 4.97 MIL/uL (4.50-6.20); RED CELL DISTRIBUTION WIDTH 14.3 % (11.0-15.5); WHITE BLOOD COUNT (AUTO) 13.6 K/uL (4.8-10.8)
[2020-08-12 04:25] LABS: ALBUMIN 1.7 g/dL (3.5-5.0); BILIRUBIN,DIRECT 0.3 mg/dL (0.0-0.3); BILIRUBIN,TOTAL 0.8 mg/dL (0.2-1.0); CREATININE 1.4 mg/dL (0.5-1.5); CRP QUANTITATIVE 68.5 mg/L (0.00-9.0); MAGNESIUM 2.7 mg/dL (1.80-2.40); PHOSPHORUS 3.4 mg/dL (2.5-4.9); POTASSIUM 5.1 mmol/L (3.5-5.1); TOTAL PROTEIN, SERUM 5.8 g/dL (6.0-8.3)
[2020-08-12 04:28] LABS: B-TYPE NATRIURETIC PEPTIDE 46 pg/mL (0-100)
[2020-08-12] MEDS: INSULIN HUMULIN R 100 UNIT/ML 3ML SQ SCH ×3 (06:49→16:30)
[2020-08-12] MEDS: DEXAMETHASONE SOD PHOSPHATE 4 MG/ML 1ML VIAL IVP SCH (08:28)
[2020-08-12] MEDS: FAMOTIDINE 20MG TAB PO SCH ×2 (08:29→20:38)
[2020-08-12] MEDS: ASCORBIC ACID 500 MG TAB PO SCH (08:29)
[2020-08-12] MEDS: ASPIRIN 81MG CHEW TAB PO SCH (08:29)
[2020-08-12] MEDS: ZINC SULFATE 220 CAPSULE PO SCH (08:29)
[2020-08-12] MEDS: ENOXAPARIN SODIUM 120 MG/0.8ML SQ SCH ×2 (08:29→20:40)
[2020-08-12] MEDS: SOLU-MEDROL 125MG VIAL IVP SCH ×2 (14:04→20:38)
[2020-08-12] MEDS: KAYEXALATE 15GM/60ML NG SCH (14:15)
[2020-08-12] MEDS: DIAZEPAM 5 MG TABLET PO PRN (20:38)
[2020-08-13] VITALS (37 sets, daily range): BP systolic 100–154; BP diastolic 63–90
[2020-08-13] MEDS: INSULIN HUMULIN R 100 UNIT/ML 3ML SQ SCH ×5 (01:11→21:12)
[2020-08-13] MEDS: CHLORHEXIDINE GLUCONATE 473 ML MOUTHWASH MM SCH ×4 (01:12→18:26)
[2020-08-13] MEDS: ARTIFICAL TEARS SOL 15 ML OU SCH ×4 (01:12→18:27)
[2020-08-13 03:28] LABS: ABG BASE EXCESS 1.6 mmol/L (-2.0-3.0); ABG HCO3 26.9 mmol/L (21.0-28.0); ABG OXYGEN SATURATION 90.9 % (95.0-99.0); ABG PCO2 45 mmHg (35-48)
[2020-08-13] MEDS: SOLU-MEDROL 125MG VIAL IVP SCH ×3 (04:47→21:08)
[2020-08-13 05:42] LABS: BASOPHILS % (AUTO) 0.2 % (0.0-5.0); HEMATOCRIT 44.5 % (42-54); LYMPHOCYTES % (AUTO) 3.3 % (21.0-51.0); MEAN CORPUSCULAR HEMOGLOBIN 31.6 pg (27.0-33.0); MEAN CORPUSCULAR VOLUME 95.7 fL (79-99); MONOCYTES % (AUTO) 2.2 % (3.0-13.0); NEUTROPHILS % (AUTO) 93.2 % (40.0-77.0); PLATELET COUNT (AUTO) 138 K/uL (130-400); RED BLOOD CELL COUNT(AUTO) 4.65 MIL/uL (4.50-6.20); RED CELL DISTRIBUTION WIDTH 14.1 % (11.0-15.5); WHITE BLOOD COUNT (AUTO) 11.6 K/uL (4.8-10.8)
[2020-08-13 06:24] LABS: ALBUMIN 1.5 g/dL (3.5-5.0); BILIRUBIN,TOTAL 0.5 mg/dL (0.2-1.0); CREATININE 0.9 mg/dL (0.5-1.5); MAGNESIUM 2.6 mg/dL (1.80-2.40); PHOSPHORUS 2.9 mg/dL (2.5-4.9); POTASSIUM 4.8 mmol/L (3.5-5.1); TOTAL PROTEIN, SERUM 5.5 g/dL (6.0-8.3)
[2020-08-13] MEDS: FAMOTIDINE 20MG TAB PO SCH ×2 (09:01→21:08)
[2020-08-13] MEDS: ASPIRIN 81MG CHEW TAB PO SCH (09:01)
[2020-08-13] MEDS: LACTATED RINGERS 1000ML 1,000 ML IV SCH (09:01)
[2020-08-13] MEDS: ZINC SULFATE 220 CAPSULE PO SCH (09:02)
[2020-08-13] MEDS: ENOXAPARIN SODIUM 120 MG/0.8ML SQ SCH ×2 (09:02→21:09)
[2020-08-13] MEDS: ASCORBIC ACID 500 MG TAB PO SCH (09:02)
[2020-08-13] MEDS: NOREPINEPHRIN 4MG/NS 250ML 250 ML IV SCH (12:45)
[2020-08-13] MEDS: KAYEXALATE 15GM/60ML NG SCH (14:32)
[2020-08-13] MEDS: FENTANYL 2500MCG+NS 250ML 250 ML IV PRN (17:32)
[2020-08-14] VITALS (41 sets, daily range): BP systolic 101–148; BP diastolic 63–97
[2020-08-14] MEDS: LACTATED RINGERS 1000ML 1,000 ML IV SCH ×2 (00:10→11:32)
[2020-08-14] MEDS: ARTIFICAL TEARS SOL 15 ML OU SCH ×4 (00:10→16:55)
[2020-08-14] MEDS: CHLORHEXIDINE GLUCONATE 473 ML MOUTHWASH MM SCH ×4 (01:01→16:55)
[2020-08-14] MEDS: SOLU-MEDROL 125MG VIAL IVP SCH ×3 (04:10→20:33)
[2020-08-14 04:39] LABS: BASOPHILS % (AUTO) 0.1 % (0.0-5.0); HEMATOCRIT 42.6 % (42-54); LYMPHOCYTES % (AUTO) 2.7 % (21.0-51.0); MEAN CORPUSCULAR HEMOGLOBIN 31.4 pg (27.0-33.0); MEAN CORPUSCULAR HGB CONC 32.6 g/dL (32.0-36.0); MEAN CORPUSCULAR VOLUME 96.2 fL (79-99); MONOCYTES % (AUTO) 2.7 % (3.0-13.0); NEUTROPHILS % (AUTO) 93.5 % (40.0-77.0); PLATELET COUNT (AUTO) 111 K/uL (130-400); RED BLOOD CELL COUNT(AUTO) 4.43 MIL/uL (4.50-6.20); RED CELL DISTRIBUTION WIDTH 14.5 % (11.0-15.5); WHITE BLOOD COUNT (AUTO) 10.1 K/uL (4.8-10.8)
[2020-08-14 05:02] LABS: ALBUMIN 1.6 g/dL (3.5-5.0); BILIRUBIN,TOTAL 0.5 mg/dL (0.2-1.0); CREATININE 0.9 mg/dL (0.5-1.5); POTASSIUM 4.6 mmol/L (3.5-5.1)
[2020-08-14] MEDS: INSULIN HUMULIN R 100 UNIT/ML 3ML SQ SCH ×4 (06:39→20:35)
[2020-08-14] MEDS: ASCORBIC ACID 500 MG TAB PO SCH (08:06)
[2020-08-14] MEDS: ZINC SULFATE 220 CAPSULE PO SCH (08:06)
[2020-08-14] MEDS: FAMOTIDINE 20MG TAB PO SCH ×2 (08:07→20:33)
[2020-08-14] MEDS: ASPIRIN 81MG CHEW TAB PO SCH (08:07)
[2020-08-14] MEDS: ENOXAPARIN SODIUM 120 MG/0.8ML SQ SCH ×2 (08:07→20:34)
[2020-08-14] MEDS: KAYEXALATE 15GM/60ML NG SCH (12:54)
[2020-08-14] MEDS: DIAZEPAM 5 MG TABLET PO PRN (20:34)
[2020-08-15] VITALS (37 sets, daily range): BP systolic 88–124; BP diastolic 63–84
[2020-08-15] MEDS: ARTIFICAL TEARS SOL 15 ML OU SCH ×4 (00:46→17:43)
[2020-08-15] MEDS: CHLORHEXIDINE GLUCONATE 473 ML MOUTHWASH MM SCH ×4 (00:46→17:43)
[2020-08-15] MEDS: FENTANYL 2500MCG+NS 250ML 250 ML IV PRN (02:27)
[2020-08-15] MEDS: MIDAZOLAM 100MG-0.9% NS 100ML 50 ML IV PRN (02:28)
[2020-08-15 03:37] LABS: ABG BASE EXCESS 2.3 mmol/L (-2.0-3.0); ABG HCO3 27.6 mmol/L (21.0-28.0); ABG OXYGEN SATURATION 91.2 % (95.0-99.0); ABG PCO2 45 mmHg (35-48)
[2020-08-15] MEDS: SOLU-MEDROL 125MG VIAL IVP SCH ×3 (04:09→22:00)
[2020-08-15] MEDS: ONDANSETRON 4MG INJ IVP PRN ×3 (04:09→23:25)
[2020-08-15 05:44] LABS: ALBUMIN 1.6 g/dL (3.5-5.0); BILIRUBIN,TOTAL 0.5 mg/dL (0.2-1.0); CREATININE 0.8 mg/dL (0.5-1.5); POTASSIUM 4.4 mmol/L (3.5-5.1); TOTAL PROTEIN, SERUM 4.9 g/dL (6.0-8.3)
[2020-08-15 05:47] LABS: BASOPHILS % (AUTO) 0.1 % (0.0-5.0); LYMPHOCYTES % (AUTO) 3.1 % (21.0-51.0); MEAN CORPUSCULAR HEMOGLOBIN 31.4 pg (27.0-33.0); MEAN CORPUSCULAR HGB CONC 32.3 g/dL (32.0-36.0); MEAN CORPUSCULAR VOLUME 97.3 fL (79-99); MONOCYTES % (AUTO) 2.9 % (3.0-13.0); NEUTROPHILS % (AUTO) 92.8 % (40.0-77.0); PLATELET COUNT (AUTO) 106 K/uL (130-400); RED BLOOD CELL COUNT(AUTO) 4.42 MIL/uL (4.50-6.20); RED CELL DISTRIBUTION WIDTH 14.6 % (11.0-15.5); WHITE BLOOD COUNT (AUTO) 10.5 K/uL (4.8-10.8)
[2020-08-15] MEDS: INSULIN HUMULIN R 100 UNIT/ML 3ML SQ SCH ×4 (06:50→21:00)
[2020-08-15] MEDS: ASCORBIC ACID 500 MG TAB PO SCH (08:06)
[2020-08-15] MEDS: ASPIRIN 81MG CHEW TAB PO SCH (08:07)
[2020-08-15] MEDS: ZINC SULFATE 220 CAPSULE PO SCH (08:07)
[2020-08-15] MEDS: FAMOTIDINE 20MG TAB PO SCH ×2 (08:07→22:01)
[2020-08-15] MEDS: ENOXAPARIN SODIUM 120 MG/0.8ML SQ SCH (08:08)
[2020-08-15] MEDS: DIAZEPAM 5 MG TABLET PO PRN ×3 (08:27→23:25)
[2020-08-15] MEDS: DEXTROSE 5%-WATER 1,000 ML IV SCH ×2 (11:44→23:07)
[2020-08-15] MEDS: KAYEXALATE 15GM/60ML NG SCH (14:02)
[2020-08-15] MEDS: PANTOPRAZOLE 40 MG/VIAL IVP SCH (22:00)
[2020-08-15] MEDS: ENOXAPARIN SODIUM 40 MG/0.4 ML SYRINGE SQ SCH (22:01)
[2020-08-16] VITALS (35 sets, daily range): BP systolic 85–120; BP diastolic 50–73
[2020-08-16] MEDS: CHLORHEXIDINE GLUCONATE 473 ML MOUTHWASH MM SCH ×4 (02:15→17:16)
[2020-08-16] MEDS: ARTIFICAL TEARS SOL 15 ML OU SCH ×4 (02:16→17:16)
[2020-08-16] MEDS: MIDAZOLAM 100MG-0.9% NS 100ML 50 ML IV PRN (02:41)
[2020-08-16 04:39] LABS: HEMATOCRIT 41.7 % (42-54); MEAN CORPUSCULAR HEMOGLOBIN 30.9 pg (27.0-33.0); MEAN CORPUSCULAR HGB CONC 31.7 g/dL (32.0-36.0); MEAN CORPUSCULAR VOLUME 97.7 fL (79-99); RED BLOOD CELL COUNT(AUTO) 4.27 MIL/uL (4.50-6.20); RED CELL DISTRIBUTION WIDTH 14.7 % (11.0-15.5)
[2020-08-16 04:50] LABS: ALBUMIN 1.5 g/dL (3.5-5.0); BILIRUBIN,TOTAL 0.5 mg/dL (0.2-1.0); CREATININE 0.7 mg/dL (0.5-1.5); POTASSIUM 4.7 mmol/L (3.5-5.1); TOTAL PROTEIN, SERUM 4.6 g/dL (6.0-8.3)
[2020-08-16] MEDS: ONDANSETRON 4MG INJ IVP PRN (05:29)
[2020-08-16] MEDS: INSULIN HUMULIN R 100 UNIT/ML 3ML SQ SCH ×4 (06:21→21:00)
[2020-08-16 07:01] LABS: ABG BASE EXCESS 1.1 mmol/L (-2.0-3.0); ABG HCO3 29.1 mmol/L (21.0-28.0); ABG OXYGEN SATURATION 89.6 % (95.0-99.0); ABG PCO2 61 mmHg (35-48)
[2020-08-16] MEDS: ASPIRIN 81MG CHEW TAB PO SCH (08:14)
[2020-08-16] MEDS: FENTANYL 2500MCG+NS 250ML 250 ML IV PRN (08:14)
[2020-08-16] MEDS: FAMOTIDINE 20MG TAB PO SCH ×2 (08:14→21:41)
[2020-08-16] MEDS: ZINC SULFATE 220 CAPSULE PO SCH (08:14)
[2020-08-16] MEDS: ENOXAPARIN SODIUM 40 MG/0.4 ML SYRINGE SQ SCH ×2 (08:15→21:41)
[2020-08-16] MEDS: ASCORBIC ACID 500 MG TAB PO SCH (08:15)
[2020-08-16] MEDS: SOLU-MEDROL 125MG VIAL IVP SCH ×2 (08:19→21:40)
[2020-08-16] MEDS: PANTOPRAZOLE 40 MG/VIAL IVP SCH ×2 (08:41→21:40)
[2020-08-16] MEDS: DIAZEPAM 5 MG TABLET PO PRN ×2 (08:41→17:59)
[2020-08-16] MEDS: DEXTROSE 5%-WATER 1,000 ML IV SCH (11:42)
[2020-08-16] MEDS: KAYEXALATE 15GM/60ML NG SCH (13:31)
[2020-08-16] MEDS ORDERED: LEVO100 PO (14:21)
[2020-08-16] MEDS ORDERED: ETOD400T4 PO (14:21)
[2020-08-16] MEDS ORDERED: TAMS-1 PO (14:21)
[2020-08-17] VITALS (47 sets, daily range): BP systolic 81–146; BP diastolic 50–88
[2020-08-17] MEDS: ARTIFICAL TEARS SOL 15 ML OU SCH ×4 (00:36→17:55)
[2020-08-17] MEDS: CHLORHEXIDINE GLUCONATE 473 ML MOUTHWASH MM SCH ×4 (00:36→17:54)
[2020-08-17 04:24] LABS: HEMATOCRIT 39.1 % (42-54); MEAN CORPUSCULAR HEMOGLOBIN 31.6 pg (27.0-33.0); MEAN CORPUSCULAR HGB CONC 32.2 g/dL (32.0-36.0); PLATELET COUNT (AUTO) 71 K/uL (130-400); RED BLOOD CELL COUNT(AUTO) 3.99 MIL/uL (4.50-6.20); RED CELL DISTRIBUTION WIDTH 14.4 % (11.0-15.5); WHITE BLOOD COUNT (AUTO) 6.3 K/uL (4.8-10.8)
[2020-08-17 04:33] LABS: CREATININE 0.8 mg/dL (0.5-1.5); POTASSIUM 4.7 mmol/L (3.5-5.1)
[2020-08-17] MEDS: DEXTROSE 5%-WATER 1,000 ML IV SCH ×2 (04:40→15:43)
[2020-08-17 05:45] LABS: BAND NEUTROPHILS % (MANUAL) 3 % (0-2); LYMPHOCYTES % (MANUAL) 2 % (22-44); MAN.DIFF COMMENT-IMPRESSION MANUAL DIFFERENTIAL; MONOCYTES % (MANUAL) 2 % (2-9); SEGMENTED NEUTROPHILS % 93 % (40-70)
[2020-08-17 05:46] LABS: PLATELET MORPHOLOGY COMMENT DECREASED
[2020-08-17] MEDS: INSULIN HUMULIN R 100 UNIT/ML 3ML SQ SCH ×4 (06:26→21:00)
[2020-08-17 07:01] LABS: ABG HCO3 31.2 mmol/L (21.0-28.0); ABG OXYGEN SATURATION 87.3 % (95.0-99.0); ABG PCO2 57 mmHg (35-48)
[2020-08-17] MEDS: ASPIRIN 81MG CHEW TAB PO SCH (07:58)
[2020-08-17] MEDS: ASCORBIC ACID 500 MG TAB PO SCH (07:59)
[2020-08-17] MEDS: FENTANYL 2500MCG+NS 250ML 250 ML IV SCH (08:00)
[2020-08-17] MEDS: SOLU-MEDROL 125MG VIAL IVP SCH ×2 (08:02→22:06)
[2020-08-17] MEDS: FAMOTIDINE 20MG TAB PO SCH (08:02)
[2020-08-17] MEDS: ENOXAPARIN SODIUM 40 MG/0.4 ML SYRINGE SQ SCH (09:00)
[2020-08-17] MEDS: SUCRALFATE 1 GM TABLET PO SCH ×4 (10:31→22:06)
[2020-08-17] MEDS: METOCLOPRAMIDE 10 MG/2 ML VIAL IVP SCH ×3 (10:31→22:07)
[2020-08-17] MEDS: KAYEXALATE 15GM/60ML NG SCH (12:30)
[2020-08-17] MEDS: PANTOPRAZOLE 40 MG/VIAL IVP SCH ×2 (13:57→22:09)
[2020-08-17] MEDS: DIAZEPAM 5 MG TABLET PO PRN (16:42)
[2020-08-17] MEDS ORDERED: ROCURONIUM BROMIDE 100 MG in 0.9%NACL 100ML 100 ML IV SCH (18:45)
[2020-08-17 19:18] LABS: ABG HCO3 27.3 mmol/L (21.0-28.0); ABG PCO2 41 mmHg (35-48)
[2020-08-17] MEDS: ROCURONIUM BROMIDE IV SCH (23:12)
[2020-08-17] MEDS: NACL 0.9% IV SCH (23:12)
[2020-08-17] MEDS: MIDAZOLAM 100MG-0.9% NS 100ML 50 ML IV PRN (23:56)
[2020-08-18] VITALS (54 sets, daily range): BP systolic 74–125; BP diastolic 42–74
[2020-08-18] MEDS: ARTIFICAL TEARS SOL 15 ML OU SCH ×4 (01:14→17:54)
[2020-08-18] MEDS: CHLORHEXIDINE GLUCONATE 473 ML MOUTHWASH MM SCH ×4 (01:14→17:54)
[2020-08-18] MEDS: FENTANYL 2500MCG+NS 250ML 250 ML IV SCH ×2 (01:25→12:46)
[2020-08-18] MEDS: METOCLOPRAMIDE 10 MG/2 ML VIAL IVP SCH ×4 (04:31→21:46)
[2020-08-18] MEDS ORDERED: PROPOFOL 1000 MG/100 ML 0 ML IV ONE (04:37)
[2020-08-18] MEDS: DEXTROSE 5%-WATER 1,000 ML IV SCH ×2 (05:10→17:53)
[2020-08-18 06:13] LABS: BASOPHILS % (AUTO) 0.2 % (0.0-5.0); HEMATOCRIT 36.5 % (42-54); LYMPHOCYTES % (AUTO) 2.9 % (21.0-51.0); MEAN CORPUSCULAR HEMOGLOBIN 31.7 pg (27.0-33.0); MEAN CORPUSCULAR HGB CONC 32.3 g/dL (32.0-36.0); MEAN CORPUSCULAR VOLUME 98.1 fL (79-99); MONOCYTES % (AUTO) 2.2 % (3.0-13.0); PLATELET COUNT (AUTO) 55 K/uL (130-400); RED BLOOD CELL COUNT(AUTO) 3.72 MIL/uL (4.50-6.20); RED CELL DISTRIBUTION WIDTH 14.1 % (11.0-15.5); WHITE BLOOD COUNT (AUTO) 4.1 K/uL (4.8-10.8)
[2020-08-18 06:24] LABS: CREATININE 0.8 mg/dL (0.5-1.5)
[2020-08-18] MEDS: NACL 0.9% IV SCH (06:41)
[2020-08-18] MEDS: ROCURONIUM BROMIDE IV SCH (06:41)
[2020-08-18] MEDS: INSULIN HUMULIN R 100 UNIT/ML 3ML SQ SCH ×4 (06:42→21:00)
[2020-08-18] MEDS: SUCRALFATE 1 GM TABLET PO SCH ×4 (08:07→21:46)
[2020-08-18] MEDS: SOLU-MEDROL 125MG VIAL IVP SCH ×2 (09:41→21:40)
[2020-08-18] MEDS: PANTOPRAZOLE 40 MG/VIAL IVP SCH ×2 (09:49→21:55)
[2020-08-18] MEDS: MIDAZOLAM 100MG-0.9% NS 100ML 50 ML IV PRN ×2 (11:54→21:41)
[2020-08-18] MEDS ORDERED: ROCURONIUM BROMIDE IV SCH (12:30)
[2020-08-18] MEDS ORDERED: [UNRECOGNIZED DRUG - OTHER] IV SCH (12:30)
[2020-08-18] MEDS: KAYEXALATE 15GM/60ML NG SCH (13:30)
[2020-08-19] VITALS (39 sets, daily range): BP systolic 79–154; BP diastolic 45–76
[2020-08-19] MEDS: ARTIFICAL TEARS SOL 15 ML OU SCH ×4 (01:09→16:30)
[2020-08-19] MEDS: CHLORHEXIDINE GLUCONATE 473 ML MOUTHWASH MM SCH ×4 (01:09→16:30)
[2020-08-19] MEDS: [UNRECOGNIZED DRUG - OTHER] IV SCH ×3 (01:10→18:03)
[2020-08-19] MEDS: ROCURONIUM BROMIDE IV SCH ×3 (01:10→18:03)
[2020-08-19] MEDS: METOCLOPRAMIDE 10 MG/2 ML VIAL IVP SCH ×4 (03:23→22:59)
[2020-08-19] MEDS: FENTANYL 2500MCG+NS 250ML 250 ML IV SCH ×2 (03:41→15:10)
[2020-08-19] MEDS: DEXTROSE 5%-WATER 1,000 ML IV SCH ×2 (05:55→22:59)
[2020-08-19 05:57] LABS: HEMATOCRIT 34.3 % (42-54); MEAN CORPUSCULAR HEMOGLOBIN 30.9 pg (27.0-33.0); MEAN CORPUSCULAR HGB CONC 31.8 g/dL (32.0-36.0); MEAN CORPUSCULAR VOLUME 97.2 fL (79-99); RED BLOOD CELL COUNT(AUTO) 3.53 MIL/uL (4.50-6.20); RED CELL DISTRIBUTION WIDTH 13.8 % (11.0-15.5); WHITE BLOOD COUNT (AUTO) 6.3 K/uL (4.8-10.8)
[2020-08-19 06:14] LABS: CREATININE 0.7 mg/dL (0.5-1.5); POTASSIUM 4.7 mmol/L (3.5-5.1)
[2020-08-19] MEDS: SUCRALFATE 1 GM TABLET PO SCH ×4 (06:57→23:00)
[2020-08-19] MEDS: INSULIN HUMULIN R 100 UNIT/ML 3ML SQ SCH ×4 (06:59→21:00)
[2020-08-19 08:20] LABS: ABG BASE EXCESS 1.2 mmol/L (-2.0-3.0); ABG HCO3 28.4 mmol/L (21.0-28.0); ABG OXYGEN SATURATION 97.5 % (95.0-99.0); ABG PCO2 55 mmHg (35-48)
[2020-08-19] MEDS: MIDAZOLAM 100MG-0.9% NS 100ML 50 ML IV PRN ×2 (08:40→18:02)
[2020-08-19] MEDS: PANTOPRAZOLE 40 MG/VIAL IVP SCH ×2 (10:14→22:59)
[2020-08-19] MEDS: NOREPINEPHRIN 4MG/NS 250ML 250 ML IV SCH (10:16)
[2020-08-19] MEDS: SOLU-MEDROL 125MG VIAL IVP SCH ×2 (11:27→22:59)
[2020-08-19] MEDS: KAYEXALATE 15GM/60ML NG SCH (12:45)
[2020-08-20] VITALS (44 sets, daily range): BP systolic 98–143; BP diastolic 49–74
[2020-08-20] MEDS: ARTIFICAL TEARS SOL 15 ML OU SCH ×4 (01:16→17:58)
[2020-08-20] MEDS: [UNRECOGNIZED DRUG - OTHER] IV SCH ×2 (01:17→21:27)
[2020-08-20] MEDS: CHLORHEXIDINE GLUCONATE 473 ML MOUTHWASH MM SCH ×4 (01:17→17:58)
[2020-08-20] MEDS: ROCURONIUM BROMIDE IV SCH ×2 (01:17→21:27)
[2020-08-20 04:09] LABS: ABG HCO3 30.1 mmol/L (21.0-28.0); ABG OXYGEN SATURATION 95.4 % (95.0-99.0); ABG PCO2 62 mmHg (35-48)
[2020-08-20] MEDS: FENTANYL 2500MCG+NS 250ML 250 ML IV SCH (04:24)
[2020-08-20] MEDS: NOREPINEPHRIN 4MG/NS 250ML 250 ML IV SCH (04:26)
[2020-08-20] MEDS: METOCLOPRAMIDE 10 MG/2 ML VIAL IVP SCH ×4 (04:29→21:29)
[2020-08-20 04:30] LABS: HEMATOCRIT 32.8 % (42-54); MEAN CORPUSCULAR HEMOGLOBIN 31.8 pg (27.0-33.0); MEAN CORPUSCULAR HGB CONC 32.6 g/dL (32.0-36.0); MEAN CORPUSCULAR VOLUME 97.3 fL (79-99); PLATELET COUNT (AUTO) 77 K/uL (130-400); RED BLOOD CELL COUNT(AUTO) 3.37 MIL/uL (4.50-6.20); RED CELL DISTRIBUTION WIDTH 13.8 % (11.0-15.5)
[2020-08-20 04:49] LABS: CREATININE 0.6 mg/dL (0.5-1.5); POTASSIUM 4.8 mmol/L (3.5-5.1)
[2020-08-20] MEDS: MIDAZOLAM 100MG-0.9% NS 100ML 50 ML IV PRN ×3 (06:24→23:48)
[2020-08-20 06:34] LABS: BAND NEUTROPHILS % (MANUAL) 26 % (0-2); LYMPHOCYTES % (MANUAL) 2 % (22-44); MONOCYTES % (MANUAL) 3 % (2-9); SEGMENTED NEUTROPHILS % 69 % (40-70)
[2020-08-20 06:35] LABS: MAN.DIFF COMMENT-IMPRESSION MANUAL DIFFERENTIAL; PLATELET MORPHOLOGY COMMENT DECREASED
[2020-08-20] MEDS: INSULIN HUMULIN R 100 UNIT/ML 3ML SQ SCH ×3 (06:35→17:20)
[2020-08-20] MEDS: SUCRALFATE 1 GM TABLET PO SCH ×4 (07:39→21:26)
[2020-08-20] MEDS: SOLU-MEDROL 125MG VIAL IVP SCH ×2 (08:21→21:26)
[2020-08-20] MEDS: PANTOPRAZOLE 40 MG/VIAL IVP SCH ×2 (10:03→21:26)
[2020-08-20] MEDS: KAYEXALATE 15GM/60ML NG SCH (12:51)
[2020-08-20] MEDS: DEXTROSE 5%-WATER 1,000 ML IV SCH (13:20)
[2020-08-20 22:07] LABS: ABG HCO3 33.1 mmol/L (21.0-28.0); ABG OXYGEN SATURATION 88.1 % (95.0-99.0); ABG PCO2 58 mmHg (35-48)
[2020-08-21] VITALS (37 sets, daily range): BP systolic 106–139; BP diastolic 58–76
[2020-08-21] MEDS: INSULIN HUMULIN R 100 UNIT/ML 3ML SQ SCH ×5 (00:16→20:57)
[2020-08-21] MEDS: FENTANYL 2500MCG+NS 250ML 250 ML IV SCH ×3 (00:30→21:03)
[2020-08-21] MEDS: ARTIFICAL TEARS SOL 15 ML OU SCH ×4 (00:30→18:05)
[2020-08-21] MEDS: CHLORHEXIDINE GLUCONATE 473 ML MOUTHWASH MM SCH ×4 (00:30→18:04)
[2020-08-21 03:24] LABS: ABG BASE EXCESS 5.9 mmol/L (-2.0-3.0); ABG HCO3 34.1 mmol/L (21.0-28.0); ABG OXYGEN SATURATION 91.3 % (95.0-99.0); ABG PCO2 65 mmHg (35-48)
[2020-08-21] MEDS: METOCLOPRAMIDE 10 MG/2 ML VIAL IVP SCH ×4 (03:42→20:59)
[2020-08-21] MEDS: DEXTROSE 5%-WATER 1,000 ML IV SCH (04:47)
[2020-08-21 05:22] LABS: HEMATOCRIT 32.5 % (42-54); MEAN CORPUSCULAR HGB CONC 32.3 g/dL (32.0-36.0); MEAN CORPUSCULAR VOLUME 95.9 fL (79-99); RED BLOOD CELL COUNT(AUTO) 3.39 MIL/uL (4.50-6.20); RED CELL DISTRIBUTION WIDTH 13.8 % (11.0-15.5); WHITE BLOOD COUNT (AUTO) 7.9 K/uL (4.8-10.8)
[2020-08-21 05:58] LABS: CREATININE 0.6 mg/dL (0.5-1.5); POTASSIUM 4.7 mmol/L (3.5-5.1)
[2020-08-21] MEDS: SUCRALFATE 1 GM TABLET PO SCH ×4 (06:35→20:56)
[2020-08-21] MEDS: ROCURONIUM BROMIDE IV SCH (06:36)
[2020-08-21] MEDS: [UNRECOGNIZED DRUG - OTHER] IV SCH (06:36)
[2020-08-21] MEDS: SOLU-MEDROL 125MG VIAL IVP SCH ×2 (08:17→20:56)
[2020-08-21] MEDS: MIDAZOLAM 100MG-0.9% NS 100ML 50 ML IV PRN (10:05)
[2020-08-21] MEDS: PANTOPRAZOLE 40 MG/VIAL IVP SCH ×2 (10:06→20:56)
[2020-08-21] MEDS: KAYEXALATE 15GM/60ML NG SCH (14:18)
[2020-08-22] VITALS (48 sets, daily range): BP systolic 96–188; BP diastolic 53–105
[2020-08-22] MEDS: CHLORHEXIDINE GLUCONATE 473 ML MOUTHWASH MM SCH ×4 (02:13→18:09)
[2020-08-22] MEDS: ARTIFICAL TEARS SOL 15 ML OU SCH ×4 (02:13→18:09)
[2020-08-22 04:22] LABS: BASOPHILS % (AUTO) 0.4 % (0.0-5.0); EOSINOPHILS % (AUTO) 0.6 % (0.0-8.0); HEMATOCRIT 32.7 % (42-54); LYMPHOCYTES % (AUTO) 3.8 % (21.0-51.0); MEAN CORPUSCULAR HEMOGLOBIN 31.3 pg (27.0-33.0); MEAN CORPUSCULAR HGB CONC 33.6 g/dL (32.0-36.0); MEAN CORPUSCULAR VOLUME 93.2 fL (79-99); MONOCYTES % (AUTO) 2.5 % (3.0-13.0); NEUTROPHILS % (AUTO) 90.8 % (40.0-77.0); NUCLEATED RED BLOOD CELLS 0.3 % (0.0-0.19); PLATELET COUNT (AUTO) 100 K/uL (130-400); RED BLOOD CELL COUNT(AUTO) 3.51 MIL/uL (4.50-6.20); RED CELL DISTRIBUTION WIDTH 13.7 % (11.0-15.5)
[2020-08-22 04:28] LABS: CREATININE 0.6 mg/dL (0.5-1.5); POTASSIUM 4.8 mmol/L (3.5-5.1)
[2020-08-22] MEDS: METOCLOPRAMIDE 10 MG/2 ML VIAL IVP SCH ×4 (04:36→20:34)
[2020-08-22] MEDS: MIDAZOLAM 100MG-0.9% NS 100ML 50 ML IV PRN ×3 (06:39→22:44)
[2020-08-22] MEDS: SUCRALFATE 1 GM TABLET PO SCH ×4 (06:39→20:33)
[2020-08-22] MEDS: NOREPINEPHRIN 4MG/NS 250ML 250 ML IV SCH (06:40)
[2020-08-22] MEDS: INSULIN HUMULIN R 100 UNIT/ML 3ML SQ SCH ×4 (07:30→22:43)
[2020-08-22 07:34] LABS: ABG BASE EXCESS 4.3 mmol/L (-2.0-3.0); ABG OXYGEN SATURATION 79.1 % (95.0-99.0); ABG PCO2 61 mmHg (35-48)
[2020-08-22] MEDS: PANTOPRAZOLE 40 MG/VIAL IVP SCH ×2 (09:14→20:33)
[2020-08-22] MEDS: SOLU-MEDROL 125MG VIAL IVP SCH ×2 (09:14→20:33)
[2020-08-22] MEDS: DEXTROSE 5%-WATER 1,000 ML IV SCH ×3 (12:25→23:54)
[2020-08-22] MEDS ORDERED: FUROSEMIDE 40MG VIAL IV SCH (14:15)
[2020-08-22] MEDS: KAYEXALATE 15GM/60ML NG SCH (14:44)
[2020-08-22] MEDS: FENTANYL 2500MCG+NS 250ML 250 ML IV SCH (18:11)
[2020-08-22] MEDS ORDERED: PROPOFOL 1000 MG/100 ML 100 ML IV ONE (21:57)
[2020-08-22] MEDS ORDERED: PROPOFOL 1000 MG/100 ML IV PRN (22:00)
[2020-08-23] VITALS (79 sets, daily range): BP systolic 82–199; BP diastolic 48–94
[2020-08-23] MEDS: ARTIFICAL TEARS SOL 15 ML OU SCH ×4 (00:30→17:45)
[2020-08-23] MEDS: CHLORHEXIDINE GLUCONATE 473 ML MOUTHWASH MM SCH ×4 (00:30→17:45)
[2020-08-23] MEDS: PROPOFOL 1000 MG/100 ML 100 ML IV SCH ×3 (04:14→22:49)
[2020-08-23] MEDS: METOCLOPRAMIDE 10 MG/2 ML VIAL IVP SCH ×3 (04:18→15:52)
[2020-08-23] MEDS: FENTANYL 2500MCG+NS 250ML 250 ML IV SCH ×2 (04:32→18:52)
[2020-08-23] MEDS: SUCRALFATE 1 GM TABLET PO SCH ×4 (06:07→20:29)
[2020-08-23 06:08] LABS: BASOPHILS % (AUTO) 0.5 % (0.0-5.0); EOSINOPHILS % (AUTO) 0.2 % (0.0-8.0); HEMATOCRIT 36.9 % (42-54); MEAN CORPUSCULAR HEMOGLOBIN 31.5 pg (27.0-33.0); MEAN CORPUSCULAR HGB CONC 33.6 g/dL (32.0-36.0); MEAN CORPUSCULAR VOLUME 93.7 fL (79-99); MONOCYTES % (AUTO) 2.7 % (3.0-13.0); NEUTROPHILS % (AUTO) 89.2 % (40.0-77.0); NUCLEATED RED BLOOD CELLS 0.3 % (0.0-0.19); PLATELET COUNT (AUTO) 96 K/uL (130-400); RED BLOOD CELL COUNT(AUTO) 3.94 MIL/uL (4.50-6.20); RED CELL DISTRIBUTION WIDTH 14.1 % (11.0-15.5); WHITE BLOOD COUNT (AUTO) 9.5 K/uL (4.8-10.8)
[2020-08-23] MEDS: INSULIN HUMULIN R 100 UNIT/ML 3ML SQ SCH ×4 (06:08→22:59)
[2020-08-23 06:28] LABS: CREATININE 0.6 mg/dL (0.5-1.5); POTASSIUM 4.2 mmol/L (3.5-5.1)
[2020-08-23] MEDS: PANTOPRAZOLE 40 MG/VIAL IVP SCH ×2 (08:17→20:29)
[2020-08-23] MEDS: SOLU-MEDROL 125MG VIAL IVP SCH ×2 (08:17→20:27)
[2020-08-23] MEDS: NOREPINEPHRIN 4MG/NS 250ML 250 ML IV SCH ×2 (08:19→22:47)
[2020-08-23] MEDS: DIAZEPAM 5 MG TABLET PO PRN (15:52)
[2020-08-23] MEDS: KAYEXALATE 15GM/60ML NG SCH (15:54)
[2020-08-23] MEDS: DEXTROSE 5%-WATER 1,000 ML IV SCH (17:02)
[2020-08-23] MEDS: MIDAZOLAM 100MG-0.9% NS 100ML 50 ML IV PRN (20:28)
[2020-08-24] VITALS (77 sets, daily range): BP systolic 76–160; BP diastolic 45–93
[2020-08-24] MEDS: PROPOFOL 1000 MG/100 ML 100 ML IV SCH ×5 (00:05→23:36)
[2020-08-24] MEDS: METOCLOPRAMIDE 10 MG/2 ML VIAL IVP SCH ×5 (00:11→20:24)
[2020-08-24] MEDS: CHLORHEXIDINE GLUCONATE 473 ML MOUTHWASH MM SCH ×5 (00:30→23:36)
[2020-08-24] MEDS: ARTIFICAL TEARS SOL 15 ML OU SCH ×5 (00:30→23:36)
[2020-08-24] MEDS: FENTANYL 2500MCG+NS 250ML 250 ML IV SCH ×3 (04:47→20:22)
[2020-08-24] MEDS: DEXTROSE 5%-WATER 1,000 ML IV SCH (05:13)
[2020-08-24] MEDS: SUCRALFATE 1 GM TABLET PO SCH ×4 (06:09→20:24)
[2020-08-24] MEDS: NOREPINEPHRIN 4MG/NS 250ML 250 ML IV SCH (06:29)
[2020-08-24] MEDS: INSULIN HUMULIN R 100 UNIT/ML 3ML SQ SCH ×4 (07:30→21:48)
[2020-08-24] MEDS: SOLU-MEDROL 125MG VIAL IVP SCH ×2 (08:08→20:24)
[2020-08-24] MEDS: DIAZEPAM 5 MG TABLET PO PRN (08:09)
[2020-08-24] MEDS: PANTOPRAZOLE 40 MG/VIAL IVP SCH ×2 (09:36→22:04)
[2020-08-24] MEDS: KAYEXALATE 15GM/60ML NG SCH (12:40)
[2020-08-24] MEDS: MIDAZOLAM 100MG-0.9% NS 100ML 50 ML IV PRN (16:56)
[2020-08-25] VITALS (89 sets, daily range): BP systolic 86–173; BP diastolic 50–96
[2020-08-25] MEDS: NOREPINEPHRIN 4MG/NS 250ML 250 ML IV SCH ×3 (02:20→20:23)
[2020-08-25] MEDS: METOCLOPRAMIDE 10 MG/2 ML VIAL IVP SCH ×4 (03:34→20:26)
[2020-08-25 04:53] LABS: BASOPHILS % (AUTO) 0.3 % (0.0-5.0); EOSINOPHILS % (AUTO) 0.2 % (0.0-8.0); HEMATOCRIT 35.2 % (42-54); LYMPHOCYTES % (AUTO) 3.4 % (21.0-51.0); MEAN CORPUSCULAR HEMOGLOBIN 31.2 pg (27.0-33.0); MEAN CORPUSCULAR HGB CONC 33.2 g/dL (32.0-36.0); MEAN CORPUSCULAR VOLUME 93.9 fL (79-99); NEUTROPHILS % (AUTO) 90.1 % (40.0-77.0); PLATELET COUNT (AUTO) 109 K/uL (130-400); RED BLOOD CELL COUNT(AUTO) 3.75 MIL/uL (4.50-6.20); RED CELL DISTRIBUTION WIDTH 14.6 % (11.0-15.5); WHITE BLOOD COUNT (AUTO) 12.8 K/uL (4.8-10.8)
[2020-08-25 05:09] LABS: CREATININE 0.5 mg/dL (0.5-1.5)
[2020-08-25] MEDS: ARTIFICAL TEARS SOL 15 ML OU SCH ×4 (05:38→23:41)
[2020-08-25] MEDS: CHLORHEXIDINE GLUCONATE 473 ML MOUTHWASH MM SCH ×4 (05:38→23:40)
[2020-08-25] MEDS: PROPOFOL 1000 MG/100 ML 100 ML IV SCH ×4 (05:46→20:24)
[2020-08-25] MEDS: MIDAZOLAM 100MG-0.9% NS 100ML 50 ML IV PRN (08:38)
[2020-08-25] MEDS: PANTOPRAZOLE 40 MG/VIAL IVP SCH ×2 (08:39→21:47)
[2020-08-25] MEDS: INSULIN HUMULIN R 100 UNIT/ML 3ML SQ SCH ×4 (08:40→21:58)
[2020-08-25] MEDS: SOLU-MEDROL 125MG VIAL IVP SCH ×2 (08:41→20:26)
[2020-08-25] MEDS: DIAZEPAM 5 MG TABLET PO PRN (08:41)
[2020-08-25] MEDS: SUCRALFATE 1 GM TABLET PO SCH ×4 (08:41→20:27)
[2020-08-25] MEDS: KAYEXALATE 15GM/60ML NG SCH (13:02)
[2020-08-25 13:53] LABS: ABG BASE EXCESS 7.7 mmol/L (-2.0-3.0); ABG HCO3 34.9 mmol/L (21.0-28.0); ABG OXYGEN SATURATION 90.1 % (95.0-99.0); ABG PCO2 61 mmHg (35-48)
[2020-08-25] MEDS: FUROSEMIDE 40MG VIAL IV SCH ×2 (14:05→20:27)
[2020-08-25] MEDS: HEPARIN 5,000 UNIT VIAL SQ SCH (14:07)
[2020-08-25 14:40] LABS: ABG BASE EXCESS 7.1 mmol/L (-2.0-3.0); ABG HCO3 33.6 mmol/L (21.0-28.0); ABG OXYGEN SATURATION 90.9 % (95.0-99.0); ABG PCO2 55 mmHg (35-48)
[2020-08-25] MEDS: FENTANYL 2500MCG+NS 250ML 250 ML IV SCH (20:25)
[2020-08-25] MEDS: [UNRECOGNIZED DRUG - OTHER] IV SCH (20:26)
[2020-08-25] MEDS: ROCURONIUM BROMIDE IV SCH (20:26)
[2020-08-25] MEDS: HONEY 1 APPL/ML TUBE TP SCH (20:28)
[2020-08-25] MEDS: BALSAM PERU/CASTOR OIL 60 GM TUBE TP SCH (20:28)
[2020-08-26] VITALS (94 sets, daily range): BP systolic 82–156; BP diastolic 48–84
[2020-08-26] MEDS: PROPOFOL 1000 MG/100 ML 100 ML IV SCH ×5 (01:41→22:41)
[2020-08-26] MEDS: METOCLOPRAMIDE 10 MG/2 ML VIAL IVP SCH ×4 (02:49→22:25)
[2020-08-26] MEDS: HEPARIN 5,000 UNIT VIAL SQ SCH ×2 (02:49→13:01)
[2020-08-26 04:03] LABS: ALBUMIN 1.4 g/dL (3.5-5.0); BILIRUBIN,TOTAL 0.7 mg/dL (0.2-1.0); CREATININE 0.5 mg/dL (0.5-1.5); POTASSIUM 3.1 mmol/L (3.5-5.1); TOTAL PROTEIN, SERUM 4.6 g/dL (6.0-8.3)
[2020-08-26] MEDS: FUROSEMIDE 40MG VIAL IV SCH ×3 (06:08→21:15)
[2020-08-26] MEDS: CHLORHEXIDINE GLUCONATE 473 ML MOUTHWASH MM SCH ×3 (06:09→18:13)
[2020-08-26] MEDS: ARTIFICAL TEARS SOL 15 ML OU SCH ×3 (06:09→18:13)
[2020-08-26] MEDS: INSULIN HUMULIN R 100 UNIT/ML 3ML SQ SCH ×4 (09:55→23:59)
[2020-08-26] MEDS: FENTANYL 2500MCG+NS 250ML 250 ML IV SCH (09:56)
[2020-08-26] MEDS: NOREPINEPHRIN 4MG/NS 250ML 250 ML IV SCH (09:58)
[2020-08-26] MEDS: MIDAZOLAM 100MG-0.9% NS 100ML 50 ML IV PRN (09:58)
[2020-08-26] MEDS: SUCRALFATE 1 GM TABLET PO SCH ×4 (09:59→22:26)
[2020-08-26] MEDS: PANTOPRAZOLE 40 MG/VIAL IVP SCH (09:59)
[2020-08-26] MEDS: SOLU-MEDROL 125MG VIAL IVP SCH ×2 (09:59→22:26)
[2020-08-26] MEDS: BALSAM PERU/CASTOR OIL 60 GM TUBE TP SCH ×2 (10:00→23:22)
[2020-08-26] MEDS: ROCURONIUM BROMIDE IV SCH ×2 (10:07→10:08)
[2020-08-26] MEDS: [UNRECOGNIZED DRUG - OTHER] IV SCH ×2 (10:07→10:08)
[2020-08-26] MEDS ORDERED: LIDOCAINE HCL-MPF 1% 2ML VIAL IV PRN (11:30)
[2020-08-26] MEDS ORDERED: MAGNESIUM 2GM PREMIX 50ML 50 ML IV PRN (11:30)
[2020-08-26] MEDS ORDERED: POTASSIUM PHOS 15 mMOL+NS250ML 250 ML IV PRN (11:30)
[2020-08-26] MEDS: KAYEXALATE 15GM/60ML NG SCH (13:00)
[2020-08-26] MEDS: POTASSIUM CHLORIDE 20MEQ/100ML 100 ML IV PRN ×2 (14:13→22:27)
[2020-08-26] MEDS ORDERED: FENTANYL 2500MCG+NS 250ML 250 ML IV ONE (22:32)
[2020-08-26] MEDS: HONEY 1 APPL/ML TUBE TP SCH (23:23)
[2020-08-27] VITALS (88 sets, daily range): BP systolic 75–146; BP diastolic 44–83
[2020-08-27] MEDS: ARTIFICAL TEARS SOL 15 ML OU SCH ×4 (00:30→17:01)
[2020-08-27] MEDS: CHLORHEXIDINE GLUCONATE 473 ML MOUTHWASH MM SCH ×4 (00:30→17:01)
[2020-08-27] MEDS: PROPOFOL 1000 MG/100 ML 100 ML IV SCH ×5 (02:30→23:58)
[2020-08-27] MEDS ORDERED: 0.9% NACL 250ML 250 ML IV ONE (03:02)
[2020-08-27] MEDS ORDERED: NOREPINEPHRINE BITARTRATE 1 MG/1 ML ML IV ONE (03:02)
[2020-08-27] MEDS: NOREPINEPHRIN 4MG/NS 250ML 250 ML IV SCH (03:16)
[2020-08-27] MEDS: POTASSIUM CHLORIDE 20MEQ/100ML 100 ML IV PRN ×4 (03:17→20:44)
[2020-08-27] MEDS: HEPARIN 5,000 UNIT VIAL SQ SCH ×2 (03:18→13:43)
[2020-08-27 05:09] LABS: PROTHROMBIN TIME 10.7 SEC (9.6-11.6)
[2020-08-27 05:21] LABS: ALBUMIN 1.5 g/dL (3.5-5.0); BILIRUBIN,TOTAL 0.9 mg/dL (0.2-1.0); CREATININE 0.5 mg/dL (0.5-1.5); MAGNESIUM 2.8 mg/dL (1.80-2.40); POTASSIUM 3.2 mmol/L (3.5-5.1); TOTAL PROTEIN, SERUM 4.8 g/dL (6.0-8.3)
[2020-08-27] MEDS: METOCLOPRAMIDE 10 MG/2 ML VIAL IVP SCH ×4 (05:53→20:43)
[2020-08-27] MEDS: INSULIN HUMULIN R 100 UNIT/ML 3ML SQ SCH ×4 (06:00→23:42)
[2020-08-27] MEDS: ROCURONIUM BROMIDE IV SCH ×2 (06:11→09:09)
[2020-08-27] MEDS: [UNRECOGNIZED DRUG - OTHER] IV SCH ×2 (06:11→09:09)
[2020-08-27] MEDS: MIDAZOLAM 100MG-0.9% NS 100ML 50 ML IV PRN (07:12)
[2020-08-27] MEDS: SUCRALFATE 1 GM TABLET PO SCH ×4 (08:54→20:43)
[2020-08-27] MEDS: SOLU-MEDROL 125MG VIAL IVP SCH ×2 (08:54→20:43)
[2020-08-27] MEDS: PANTOPRAZOLE 40 MG/VIAL IVP SCH ×2 (08:54→20:43)
[2020-08-27] MEDS: BALSAM PERU/CASTOR OIL 60 GM TUBE TP SCH ×2 (08:55→21:00)
[2020-08-27] MEDS ORDERED: FENTANYL 2500MCG+NS 250ML 250 ML IV ONE (09:03)
[2020-08-27] MEDS: FUROSEMIDE 40MG VIAL IV SCH ×2 (11:36→17:01)
[2020-08-27] MEDS: KAYEXALATE 15GM/60ML NG SCH (12:06)
[2020-08-27 19:57] LABS: ABG BASE EXCESS 11.9 mmol/L (-2.0-3.0); ABG OXYGEN SATURATION 96.3 % (95.0-99.0); ABG PCO2 54 mmHg (35-48)
[2020-08-27] MEDS: HONEY 1 APPL/ML TUBE TP SCH (21:00)
[2020-08-28] VITALS (89 sets, daily range): BP systolic 75–197; BP diastolic 47–96
[2020-08-28] MEDS: CHLORHEXIDINE GLUCONATE 473 ML MOUTHWASH MM SCH ×4 (00:30→17:31)
[2020-08-28] MEDS: ARTIFICAL TEARS SOL 15 ML OU SCH ×4 (00:30→17:31)
[2020-08-28] MEDS: [UNRECOGNIZED DRUG - OTHER] IV SCH ×2 (00:48→10:19)
[2020-08-28] MEDS: ROCURONIUM BROMIDE IV SCH ×2 (00:48→10:19)
[2020-08-28] MEDS ORDERED: FENTANYL 2500MCG+NS 250ML 250 ML IV ONE ×2 (02:25→09:23)
[2020-08-28] MEDS: HEPARIN 5,000 UNIT VIAL SQ SCH ×2 (02:29→14:54)
[2020-08-28] MEDS: FUROSEMIDE 40MG VIAL IV SCH ×2 (02:30→21:45)
[2020-08-28] MEDS: METOCLOPRAMIDE 10 MG/2 ML VIAL IVP SCH ×4 (02:30→21:45)
[2020-08-28] MEDS: POTASSIUM CHLORIDE 20MEQ/100ML 100 ML IV PRN ×3 (02:31→06:46)
[2020-08-28 04:51] LABS: ALBUMIN 1.5 g/dL (3.5-5.0); BILIRUBIN,TOTAL 0.9 mg/dL (0.2-1.0); CREATININE 0.5 mg/dL (0.5-1.5); POTASSIUM 3.6 mmol/L (3.5-5.1); TOTAL PROTEIN, SERUM 4.8 g/dL (6.0-8.3)
[2020-08-28] MEDS: PROPOFOL 1000 MG/100 ML 100 ML IV SCH ×4 (05:18→21:12)
[2020-08-28] MEDS: INSULIN HUMULIN R 100 UNIT/ML 3ML SQ SCH ×3 (06:36→17:31)
[2020-08-28] MEDS: MIDAZOLAM 100MG-0.9% NS 100ML 50 ML IV PRN (10:21)
[2020-08-28] MEDS: NOREPINEPHRIN 4MG/NS 250ML 250 ML IV SCH ×2 (10:28→14:58)
[2020-08-28] MEDS: PANTOPRAZOLE 40 MG/VIAL IVP SCH ×2 (10:28→21:45)
[2020-08-28] MEDS: SUCRALFATE 1 GM TABLET PO SCH ×4 (10:29→21:44)
[2020-08-28] MEDS: SOLU-MEDROL 125MG VIAL IVP SCH ×2 (10:29→21:45)
[2020-08-28] MEDS: BALSAM PERU/CASTOR OIL 60 GM TUBE TP SCH ×2 (10:30→21:00)
[2020-08-28] MEDS: KAYEXALATE 15GM/60ML NG SCH (12:40)
[2020-08-28] MEDS: HONEY 1 APPL/ML TUBE TP SCH (21:00)
[2020-08-29] VITALS (55 sets, daily range): BP systolic 95–160; BP diastolic 59–95
[2020-08-29] MEDS: CHLORHEXIDINE GLUCONATE 473 ML MOUTHWASH MM SCH ×4 (00:30→17:20)
[2020-08-29] MEDS: ARTIFICAL TEARS SOL 15 ML OU SCH ×4 (01:29→17:20)
[2020-08-29] MEDS: HEPARIN 5,000 UNIT VIAL SQ SCH ×2 (02:39→13:44)
[2020-08-29] MEDS: PROPOFOL 1000 MG/100 ML 100 ML IV SCH ×3 (02:41→13:45)
[2020-08-29] MEDS ORDERED: FENTANYL 2500MCG+NS 250ML 250 ML IV ONE ×2 (03:08→16:31)
[2020-08-29] MEDS: METOCLOPRAMIDE 10 MG/2 ML VIAL IVP SCH ×4 (03:16→22:05)
[2020-08-29] MEDS: FUROSEMIDE 40MG VIAL IV SCH (03:16)
[2020-08-29 04:42] LABS: BASOPHILS % (AUTO) 0.3 % (0.0-5.0); HEMATOCRIT 38.9 % (42-54); LYMPHOCYTES % (AUTO) 3.4 % (21.0-51.0); MEAN CORPUSCULAR HEMOGLOBIN 31.2 pg (27.0-33.0); MEAN CORPUSCULAR HGB CONC 33.9 g/dL (32.0-36.0); NEUTROPHILS % (AUTO) 92.1 % (40.0-77.0); NUCLEATED RED BLOOD CELLS 0.1 % (0.0-0.19); PLATELET COUNT (AUTO) 132 K/uL (130-400); RED BLOOD CELL COUNT(AUTO) 4.23 MIL/uL (4.50-6.20); RED CELL DISTRIBUTION WIDTH 15.9 % (11.0-15.5); WHITE BLOOD COUNT (AUTO) 15.3 K/uL (4.8-10.8)
[2020-08-29 05:08] LABS: ALBUMIN 1.6 g/dL (3.5-5.0); BILIRUBIN,TOTAL 1.2 mg/dL (0.2-1.0); CREATININE 0.5 mg/dL (0.5-1.5)
[2020-08-29] MEDS: POTASSIUM CHLORIDE 20MEQ/100ML 100 ML IV PRN ×2 (05:47→17:30)
[2020-08-29] MEDS: INSULIN HUMULIN R 100 UNIT/ML 3ML SQ SCH ×4 (06:00→17:59)
[2020-08-29] MEDS: [UNRECOGNIZED DRUG - OTHER] IV SCH (06:51)
[2020-08-29] MEDS: ROCURONIUM BROMIDE IV SCH (06:51)
[2020-08-29] MEDS: SUCRALFATE 1 GM TABLET PO SCH ×4 (08:25→22:05)
[2020-08-29] MEDS: BALSAM PERU/CASTOR OIL 60 GM TUBE TP SCH ×2 (08:26→21:00)
[2020-08-29] MEDS: PANTOPRAZOLE 40 MG/VIAL IVP SCH ×2 (08:26→22:04)
[2020-08-29] MEDS: SOLU-MEDROL 125MG VIAL IVP SCH ×2 (08:26→22:05)
[2020-08-29] MEDS ORDERED: POTASSIUM CHLORIDE 10% ELIXIR 20 MEQ/15 ML UDCUP NG SCH (11:00)
[2020-08-29] MEDS: FUROSEMIDE 20MG VIAL IV SCH ×2 (11:25→23:00)
[2020-08-29] MEDS ORDERED: PHARMACY COMMUNICATION MISC SCH (11:30)
[2020-08-29] MEDS: ALBUMIN (HUMAN) 25% 100 ML IV PRN (12:06)
[2020-08-29] MEDS ORDERED: FENTANYL CITRATE PF 0.05 MG/ML 1,000 MCG in 0.9%NACL 100ML 100 ML IVPB SCH (17:15)
[2020-08-29] MEDS: FENTANYL 2500MCG+NS 250ML 250 ML IV SCH (17:58)
[2020-08-29] MEDS: HONEY 1 APPL/ML TUBE TP SCH (21:00)
[2020-08-29] MEDS: MIDAZOLAM 100MG-0.9% NS 100ML 50 ML IV PRN (21:25)
[2020-08-29] MEDS: POTASSIUM CHLORIDE 10% ELIXIR 20 MEQ/15 ML UDCUP NG SCH (22:05)
[2020-08-30] VITALS (50 sets, daily range): BP systolic 0–158; BP diastolic 48–92
[2020-08-30] MEDS: INSULIN HUMULIN R 100 UNIT/ML 3ML SQ SCH ×4 (00:14→18:00)
[2020-08-30] MEDS: CHLORHEXIDINE GLUCONATE 473 ML MOUTHWASH MM SCH ×4 (00:22→18:21)
[2020-08-30] MEDS: ARTIFICAL TEARS SOL 15 ML OU SCH ×4 (00:23→18:21)
[2020-08-30] MEDS: HEPARIN 5,000 UNIT VIAL SQ SCH ×2 (01:24→14:11)
[2020-08-30] MEDS: FENTANYL 2500MCG+NS 250ML 250 ML IV SCH ×2 (01:42→12:10)
[2020-08-30 04:10] LABS: ABG BASE EXCESS 15.6 mmol/L (-2.0-3.0); ABG OXYGEN SATURATION 85.4 % (95.0-99.0); ABG PCO2 63 mmHg (35-48)
[2020-08-30] MEDS: METOCLOPRAMIDE 10 MG/2 ML VIAL IVP SCH ×4 (06:01→21:42)
[2020-08-30] MEDS: MIDAZOLAM 100MG-0.9% NS 100ML 50 ML IV PRN ×2 (06:36→21:50)
[2020-08-30 08:24] LABS: HEMATOCRIT 35.4 % (42-54); MEAN CORPUSCULAR HEMOGLOBIN 31.1 pg (27.0-33.0); MEAN CORPUSCULAR HGB CONC 32.8 g/dL (32.0-36.0); MEAN CORPUSCULAR VOLUME 94.9 fL (79-99); PLATELET COUNT (AUTO) 98 K/uL (130-400); RED BLOOD CELL COUNT(AUTO) 3.73 MIL/uL (4.50-6.20); WHITE BLOOD COUNT (AUTO) 11.1 K/uL (4.8-10.8)
[2020-08-30] MEDS: SUCRALFATE 1 GM TABLET PO SCH ×4 (08:26→21:42)
[2020-08-30] MEDS: POTASSIUM CHLORIDE 10% ELIXIR 20 MEQ/15 ML UDCUP NG SCH ×2 (08:27→21:49)
[2020-08-30] MEDS: ALBUMIN (HUMAN) 25% 100 ML IV PRN ×2 (08:27→21:43)
[2020-08-30] MEDS: PANTOPRAZOLE 40 MG/VIAL IVP SCH ×2 (08:27→21:41)
[2020-08-30] MEDS: SOLU-MEDROL 125MG VIAL IVP SCH ×2 (08:28→21:42)
[2020-08-30] MEDS: BALSAM PERU/CASTOR OIL 60 GM TUBE TP SCH ×2 (08:28→21:00)
[2020-08-30 08:49] LABS: ALBUMIN 1.9 g/dL (3.5-5.0); BILIRUBIN,TOTAL 0.9 mg/dL (0.2-1.0); CREATININE 0.4 mg/dL (0.5-1.5); CRP QUANTITATIVE 53.8 mg/L (0.00-9.0); POTASSIUM 3.4 mmol/L (3.5-5.1); TOTAL PROTEIN, SERUM 4.8 g/dL (6.0-8.3)
[2020-08-30 09:08] LABS: LYMPHOCYTES % (MANUAL) 6 % (22-44); MONOCYTES % (MANUAL) 5 % (2-9); SEGMENTED NEUTROPHILS % 89 % (40-70)
[2020-08-30 09:09] LABS: MAN.DIFF COMMENT-IMPRESSION MANUAL DIFFERENTIAL
[2020-08-30 09:11] LABS: PLATELET MORPHOLOGY COMMENT DECREASED
[2020-08-30] MEDS: POTASSIUM CHLORIDE 20MEQ/100ML 100 ML IV PRN ×2 (09:23→10:30)
[2020-08-30] MEDS: FUROSEMIDE 20MG VIAL IV SCH (11:28)
[2020-08-30] MEDS: ROCURONIUM BROMIDE IV SCH (16:43)
[2020-08-30] MEDS: [UNRECOGNIZED DRUG - OTHER] IV SCH (16:43)
[2020-08-30] MEDS: HONEY 1 APPL/ML TUBE TP SCH (21:00)
[2020-08-30] MEDS: ALBUMIN (HUMAN) 25% 100 ML IV SCH (21:45)
[2020-08-31] VITALS (65 sets, daily range): BP systolic 77–168; BP diastolic 46–95
[2020-08-31] MEDS: FUROSEMIDE 20MG VIAL IV SCH ×3 (00:12→22:18)
[2020-08-31] MEDS: FENTANYL 2500MCG+NS 250ML 250 ML IV SCH (00:17)
[2020-08-31] MEDS: CHLORHEXIDINE GLUCONATE 473 ML MOUTHWASH MM SCH ×4 (00:30→17:22)
[2020-08-31] MEDS: ARTIFICAL TEARS SOL 15 ML OU SCH ×4 (00:30→17:22)
[2020-08-31] MEDS: METOCLOPRAMIDE 10 MG/2 ML VIAL IVP SCH ×4 (03:13→22:20)
[2020-08-31] MEDS: HEPARIN 5,000 UNIT VIAL SQ SCH ×2 (03:14→15:00)
[2020-08-31] MEDS: NOREPINEPHRIN 4MG/NS 250ML 250 ML IV SCH (03:46)
[2020-08-31 04:53] LABS: BASOPHILS % (AUTO) 0.3 % (0.0-5.0); EOSINOPHILS % (AUTO) 0.7 % (0.0-8.0); HEMATOCRIT 31.7 % (42-54); LYMPHOCYTES % (AUTO) 5.4 % (21.0-51.0); MEAN CORPUSCULAR HGB CONC 32.2 g/dL (32.0-36.0); MEAN CORPUSCULAR VOLUME 96.4 fL (79-99); MONOCYTES % (AUTO) 2.7 % (3.0-13.0); NEUTROPHILS % (AUTO) 89.1 % (40.0-77.0); PLATELET COUNT (AUTO) 100 K/uL (130-400); RED BLOOD CELL COUNT(AUTO) 3.29 MIL/uL (4.50-6.20); WHITE BLOOD COUNT (AUTO) 10.5 K/uL (4.8-10.8)
[2020-08-31 05:26] LABS: ALBUMIN 2.7 g/dL (3.5-5.0); BILIRUBIN,TOTAL 1.2 mg/dL (0.2-1.0); CREATININE 0.4 mg/dL (0.5-1.5); CRP QUANTITATIVE 43.2 mg/L (0.00-9.0); POTASSIUM 4.2 mmol/L (3.5-5.1); TOTAL PROTEIN, SERUM 5.2 g/dL (6.0-8.3)
[2020-08-31] MEDS: INSULIN HUMULIN R 100 UNIT/ML 3ML SQ SCH ×4 (06:45→18:18)
[2020-08-31] MEDS: MIDAZOLAM 100MG-0.9% NS 100ML 50 ML IV PRN (06:54)
[2020-08-31 07:57] LABS: INR 0.98 (0.85-1.15); PROTHROMBIN TIME 10.5 SEC (9.6-11.6)
[2020-08-31 07:58] LABS: PARTIAL THROMBOPLASTIN TIME 28.5 SEC (26.3-35.5)
[2020-08-31] MEDS: SUCRALFATE 1 GM TABLET PO SCH ×4 (08:00→22:16)
[2020-08-31] MEDS: ALBUMIN (HUMAN) 25% 100 ML IV SCH ×2 (09:26→22:17)
[2020-08-31] MEDS: PANTOPRAZOLE 40 MG/VIAL IVP SCH ×2 (09:26→22:18)
[2020-08-31] MEDS: SOLU-MEDROL 125MG VIAL IVP SCH ×2 (09:27→22:18)
[2020-08-31] MEDS: POTASSIUM CHLORIDE 10% ELIXIR 20 MEQ/15 ML UDCUP NG SCH ×2 (09:27→22:16)
[2020-08-31] MEDS: BALSAM PERU/CASTOR OIL 60 GM TUBE TP SCH ×2 (09:27→21:00)
[2020-08-31 10:02] LABS: ABG BASE EXCESS 14.7 mmol/L (-2.0-3.0); ABG PCO2 69 mmHg (35-48)
[2020-08-31] MEDS ORDERED: FUROSEMIDE 20MG VIAL IV SCH (14:00)
[2020-08-31] MEDS: HONEY 1 APPL/ML TUBE TP SCH (21:00)
[2020-09-01] VITALS (43 sets, daily range): BP systolic 104–176; BP diastolic 54–94
[2020-09-01] MEDS: CHLORHEXIDINE GLUCONATE 473 ML MOUTHWASH MM SCH ×4 (00:30→17:34)
[2020-09-01] MEDS: ARTIFICAL TEARS SOL 15 ML OU SCH ×4 (00:30→17:34)
[2020-09-01] MEDS: HEPARIN 5,000 UNIT VIAL SQ SCH ×2 (04:24→14:00)
[2020-09-01] MEDS: METOCLOPRAMIDE 10 MG/2 ML VIAL IVP SCH ×4 (04:25→20:13)
[2020-09-01 05:30] LABS: BASOPHILS % (AUTO) 0.3 % (0.0-5.0); EOSINOPHILS % (AUTO) 0.7 % (0.0-8.0); HEMATOCRIT 31.4 % (42-54); MEAN CORPUSCULAR HEMOGLOBIN 31.2 pg (27.0-33.0); MEAN CORPUSCULAR HGB CONC 32.5 g/dL (32.0-36.0); MONOCYTES % (AUTO) 3.5 % (3.0-13.0); NEUTROPHILS % (AUTO) 86.2 % (40.0-77.0); NUCLEATED RED BLOOD CELLS 0.2 % (0.0-0.19); PLATELET COUNT (AUTO) 110 K/uL (130-400); RED BLOOD CELL COUNT(AUTO) 3.27 MIL/uL (4.50-6.20); RED CELL DISTRIBUTION WIDTH 16.4 % (11.0-15.5); WHITE BLOOD COUNT (AUTO) 11.6 K/uL (4.8-10.8)
[2020-09-01 06:00] LABS: ALBUMIN 3.1 g/dL (3.5-5.0); BILIRUBIN,TOTAL 1.8 mg/dL (0.2-1.0); CREATININE 0.4 mg/dL (0.5-1.5); CRP QUANTITATIVE 51.9 mg/L (0.00-9.0); POTASSIUM 4.2 mmol/L (3.5-5.1); TOTAL PROTEIN, SERUM 5.4 g/dL (6.0-8.3)
[2020-09-01] MEDS: INSULIN HUMULIN R 100 UNIT/ML 3ML SQ SCH ×4 (06:00→18:00)
[2020-09-01] MEDS: FENTANYL 2500MCG+NS 250ML 250 ML IV SCH ×2 (06:28→23:25)
[2020-09-01 07:50] LABS: ABG HCO3 40.1 mmol/L (21.0-28.0); ABG OXYGEN SATURATION 93.5 % (95.0-99.0); ABG PCO2 55 mmHg (35-48)
[2020-09-01] MEDS: SUCRALFATE 1 GM TABLET PO SCH ×4 (08:05→20:11)
[2020-09-01] MEDS: PANTOPRAZOLE 40 MG/VIAL IVP SCH ×2 (08:06→20:11)
[2020-09-01] MEDS: POTASSIUM CHLORIDE 10% ELIXIR 20 MEQ/15 ML UDCUP NG SCH ×2 (08:06→20:12)
[2020-09-01] MEDS: SOLU-MEDROL 125MG VIAL IVP SCH ×2 (08:06→20:13)
[2020-09-01] MEDS: BALSAM PERU/CASTOR OIL 60 GM TUBE TP SCH ×2 (08:13→21:00)
[2020-09-01] MEDS: ALBUMIN (HUMAN) 25% 100 ML IV SCH ×2 (08:13→21:22)
[2020-09-01] MEDS: METOPROLOL TARTRATE 25 MG TAB NG SCH ×2 (10:13→20:13)
[2020-09-01] MEDS: FUROSEMIDE 20MG VIAL IV SCH ×2 (11:45→23:25)
[2020-09-02] VITALS (26 sets, daily range): BP systolic 114–152; BP diastolic 58–76
[2020-09-02] MEDS: HEPARIN 5,000 UNIT VIAL SQ SCH ×2 (01:18→14:07)
[2020-09-02] MEDS: ARTIFICAL TEARS SOL 15 ML OU SCH ×4 (01:20→17:43)
[2020-09-02] MEDS: HONEY 1 APPL/ML TUBE TP SCH (01:20)
[2020-09-02] MEDS: CHLORHEXIDINE GLUCONATE 473 ML MOUTHWASH MM SCH ×4 (01:21→17:43)
[2020-09-02] MEDS: METOCLOPRAMIDE 10 MG/2 ML VIAL IVP SCH ×4 (03:28→20:29)
[2020-09-02] MEDS: INSULIN HUMULIN R 100 UNIT/ML 3ML SQ SCH ×4 (06:00→17:42)
[2020-09-02 06:10] LABS: BASOPHILS % (AUTO) 0.1 % (0.0-5.0); EOSINOPHILS % (AUTO) 0.1 % (0.0-8.0); HEMATOCRIT 28.7 % (42-54); LYMPHOCYTES % (AUTO) 10.4 % (21.0-51.0); MEAN CORPUSCULAR HEMOGLOBIN 30.9 pg (27.0-33.0); MEAN CORPUSCULAR HGB CONC 32.1 g/dL (32.0-36.0); MEAN CORPUSCULAR VOLUME 96.3 fL (79-99); MONOCYTES % (AUTO) 3.6 % (3.0-13.0); NEUTROPHILS % (AUTO) 83.7 % (40.0-77.0); NUCLEATED RED BLOOD CELLS 0.2 % (0.0-0.19); PLATELET COUNT (AUTO) 99 K/uL (130-400); RED BLOOD CELL COUNT(AUTO) 2.98 MIL/uL (4.50-6.20); RED CELL DISTRIBUTION WIDTH 16.5 % (11.0-15.5); WHITE BLOOD COUNT (AUTO) 8.5 K/uL (4.8-10.8)
[2020-09-02 06:27] LABS: ALBUMIN 3.4 g/dL (3.5-5.0); BILIRUBIN,TOTAL 1.4 mg/dL (0.2-1.0); CREATININE 0.4 mg/dL (0.5-1.5); CRP QUANTITATIVE 65.5 mg/L (0.00-9.0); POTASSIUM 4.1 mmol/L (3.5-5.1); TOTAL PROTEIN, SERUM 5.4 g/dL (6.0-8.3)
[2020-09-02 06:50] LABS: ABG HCO3 41.1 mmol/L (21.0-28.0); ABG OXYGEN SATURATION 96.4 % (95.0-99.0); ABG PCO2 60 mmHg (35-48)
[2020-09-02] MEDS ORDERED: ALBUMIN (HUMAN) 25% 100 ML IV ONE (08:06)
[2020-09-02] MEDS: SUCRALFATE 1 GM TABLET PO SCH ×2 (08:12→12:05)
[2020-09-02] MEDS: METOPROLOL TARTRATE 25 MG TAB NG SCH ×2 (08:12→20:29)
[2020-09-02] MEDS: POTASSIUM CHLORIDE 10% ELIXIR 20 MEQ/15 ML UDCUP NG SCH ×2 (08:12→20:29)
[2020-09-02] MEDS: SOLU-MEDROL 125MG VIAL IVP SCH ×2 (08:13→20:28)
[2020-09-02] MEDS: PANTOPRAZOLE 40 MG/VIAL IVP SCH ×2 (08:13→20:28)
[2020-09-02] MEDS: ALBUMIN (HUMAN) 25% 100 ML IV SCH ×2 (08:13→20:28)
[2020-09-02] MEDS: BALSAM PERU/CASTOR OIL 60 GM TUBE TP SCH (08:13)
[2020-09-02] MEDS: FUROSEMIDE 20MG VIAL IV SCH ×2 (12:05→23:00)
[2020-09-03] VITALS (45 sets, daily range): BP systolic 90–158; BP diastolic 48–76
[2020-09-03] MEDS: CHLORHEXIDINE GLUCONATE 473 ML MOUTHWASH MM SCH ×5 (00:14→23:52)
[2020-09-03] MEDS: HONEY 1 APPL/ML TUBE TP SCH ×2 (00:35→21:12)
[2020-09-03] MEDS: BALSAM PERU/CASTOR OIL 60 GM TUBE TP SCH ×3 (00:35→21:12)
[2020-09-03] MEDS: ARTIFICAL TEARS SOL 15 ML OU SCH ×5 (00:37→23:52)
[2020-09-03] MEDS: HEPARIN 5,000 UNIT VIAL SQ SCH ×2 (02:57→14:44)
[2020-09-03 04:20] LABS: HEMATOCRIT 27.3 % (42-54); MEAN CORPUSCULAR HEMOGLOBIN 31.4 pg (27.0-33.0); MEAN CORPUSCULAR HGB CONC 31.9 g/dL (32.0-36.0); MEAN CORPUSCULAR VOLUME 98.6 fL (79-99); PLATELET COUNT (AUTO) 89 K/uL (130-400); RED BLOOD CELL COUNT(AUTO) 2.77 MIL/uL (4.50-6.20); WHITE BLOOD COUNT (AUTO) 5.6 K/uL (4.8-10.8)
[2020-09-03 04:46] LABS: ALBUMIN 3.6 g/dL (3.5-5.0); BILIRUBIN,TOTAL 1.6 mg/dL (0.2-1.0); CREATININE 0.3 mg/dL (0.5-1.5); CRP QUANTITATIVE 53.4 mg/L (0.00-9.0); TOTAL PROTEIN, SERUM 5.5 g/dL (6.0-8.3)
[2020-09-03 04:50] LABS: BAND NEUTROPHILS % (MANUAL) 11 % (0-2); LYMPHOCYTES % (MANUAL) 7 % (22-44); MONOCYTES % (MANUAL) 6 % (2-9); SEGMENTED NEUTROPHILS % 76 % (40-70)
[2020-09-03 04:51] LABS: MAN.DIFF COMMENT-IMPRESSION MANUAL DIFFERENTIAL; PLATELET MORPHOLOGY COMMENT DECREASED
[2020-09-03] MEDS: INSULIN HUMULIN R 100 UNIT/ML 3ML SQ SCH ×5 (06:00→23:52)
[2020-09-03] MEDS: METOCLOPRAMIDE 10 MG/2 ML VIAL IVP SCH ×4 (06:31→21:12)
[2020-09-03 07:18] LABS: ABG BASE EXCESS 15.6 mmol/L (-2.0-3.0); ABG HCO3 42.6 mmol/L (21.0-28.0); ABG OXYGEN SATURATION 84.1 % (95.0-99.0); ABG PCO2 61 mmHg (35-48)
[2020-09-03 07:26] LABS: ABG BASE EXCESS 14.9 mmol/L (-2.0-3.0); ABG HCO3 41.5 mmol/L (21.0-28.0); ABG OXYGEN SATURATION 83.2 % (95.0-99.0); ABG PCO2 58 mmHg (35-48)
[2020-09-03] MEDS: SOLU-MEDROL 125MG VIAL IVP SCH (07:46)
[2020-09-03] MEDS: PANTOPRAZOLE 40 MG/VIAL IVP SCH ×2 (07:46→21:12)
[2020-09-03] MEDS: POTASSIUM CHLORIDE 10% ELIXIR 20 MEQ/15 ML UDCUP NG SCH ×2 (07:46→21:11)
[2020-09-03] MEDS: METOPROLOL TARTRATE 25 MG TAB NG SCH ×2 (07:47→21:11)
[2020-09-03] MEDS: ALBUMIN (HUMAN) 25% 100 ML IV SCH ×2 (08:51→21:08)
[2020-09-03] MEDS: FUROSEMIDE 20MG VIAL IV SCH ×2 (10:26→23:00)
[2020-09-03] MEDS ORDERED: ALBUMIN (HUMAN) 25% 100 ML IV ONE (21:05)
[2020-09-03] MEDS ORDERED: FENTANYL 2500MCG+NS 250ML 250 ML IV ONE (23:11)
[2020-09-04] VITALS (40 sets, daily range): BP systolic 94–152; BP diastolic 57–93
[2020-09-04] MEDS: HEPARIN 5,000 UNIT VIAL SQ SCH ×2 (01:39→18:06)
[2020-09-04] MEDS: METOCLOPRAMIDE 10 MG/2 ML VIAL IVP SCH ×4 (04:26→21:46)
[2020-09-04 05:32] LABS: BASOPHILS % (AUTO) 0.4 % (0.0-5.0); EOSINOPHILS % (AUTO) 1.7 % (0.0-8.0); HEMATOCRIT 28.3 % (42-54); LYMPHOCYTES % (AUTO) 14.7 % (21.0-51.0); MEAN CORPUSCULAR HGB CONC 31.8 g/dL (32.0-36.0); MEAN CORPUSCULAR VOLUME 97.6 fL (79-99); MONOCYTES % (AUTO) 4.6 % (3.0-13.0); NEUTROPHILS % (AUTO) 74.7 % (40.0-77.0); NUCLEATED RED BLOOD CELLS 0.6 % (0.0-0.19); PLATELET COUNT (AUTO) 86 K/uL (130-400); RED CELL DISTRIBUTION WIDTH 17.3 % (11.0-15.5); WHITE BLOOD COUNT (AUTO) 5.4 K/uL (4.8-10.8)
[2020-09-04 05:57] LABS: ALBUMIN 3.4 g/dL (3.5-5.0); BILIRUBIN,TOTAL 1.4 mg/dL (0.2-1.0); CREATININE 0.3 mg/dL (0.5-1.5); CRP QUANTITATIVE 39.6 mg/L (0.00-9.0); POTASSIUM 3.9 mmol/L (3.5-5.1); TOTAL PROTEIN, SERUM 5.5 g/dL (6.0-8.3)
[2020-09-04] MEDS: INSULIN HUMULIN R 100 UNIT/ML 3ML SQ SCH ×3 (06:00→17:59)
[2020-09-04] MEDS: CHLORHEXIDINE GLUCONATE 473 ML MOUTHWASH MM SCH ×3 (06:12→18:07)
[2020-09-04] MEDS: ARTIFICAL TEARS SOL 15 ML OU SCH ×3 (06:12→18:07)
[2020-09-04] MEDS: PANTOPRAZOLE 40 MG/VIAL IVP SCH ×2 (07:34→21:43)
[2020-09-04] MEDS: POTASSIUM CHLORIDE 10% ELIXIR 20 MEQ/15 ML UDCUP NG SCH ×2 (07:35→21:43)
[2020-09-04] MEDS: SOLU-MEDROL 125MG VIAL IVP SCH (07:35)
[2020-09-04] MEDS: METOPROLOL TARTRATE 25 MG TAB NG SCH ×2 (07:35→21:00)
[2020-09-04] MEDS: BALSAM PERU/CASTOR OIL 60 GM TUBE TP SCH ×2 (07:36→21:44)
[2020-09-04] MEDS ORDERED: LABETALOL 20MG VIAL IV SCH (10:15)
[2020-09-04] MEDS: FUROSEMIDE 20MG VIAL IV SCH (10:45)
[2020-09-04 18:25] LABS: BASOPHILS % (AUTO) 0.3 % (0.0-5.0); EOSINOPHILS % (AUTO) 0.2 % (0.0-8.0); HEMATOCRIT 29.4 % (42-54); LYMPHOCYTES % (AUTO) 10.3 % (21.0-51.0); MEAN CORPUSCULAR HEMOGLOBIN 30.9 pg (27.0-33.0); MEAN CORPUSCULAR HGB CONC 31.3 g/dL (32.0-36.0); MEAN CORPUSCULAR VOLUME 98.7 fL (79-99); MONOCYTES % (AUTO) 4.1 % (3.0-13.0); NEUTROPHILS % (AUTO) 82.5 % (40.0-77.0); NUCLEATED RED BLOOD CELLS 0.3 % (0.0-0.19); PLATELET COUNT (AUTO) 90 K/uL (130-400); RED BLOOD CELL COUNT(AUTO) 2.98 MIL/uL (4.50-6.20); RED CELL DISTRIBUTION WIDTH 17.5 % (11.0-15.5)
[2020-09-04] MEDS: HONEY 1 APPL/ML TUBE TP SCH (21:44)
[2020-09-05] VITALS (27 sets, daily range): BP systolic 94–136; BP diastolic 58–82
[2020-09-05] MEDS: FUROSEMIDE 20MG VIAL IV SCH ×3 (00:46→22:10)
[2020-09-05] MEDS: ARTIFICAL TEARS SOL 15 ML OU SCH ×5 (00:46→23:22)
[2020-09-05] MEDS: CHLORHEXIDINE GLUCONATE 473 ML MOUTHWASH MM SCH ×5 (00:46→23:21)
[2020-09-05] MEDS: HEPARIN 5,000 UNIT VIAL SQ SCH ×2 (02:00→14:00)
[2020-09-05] MEDS: METOCLOPRAMIDE 10 MG/2 ML VIAL IVP SCH ×4 (02:12→22:09)
[2020-09-05] MEDS: INSULIN HUMULIN R 100 UNIT/ML 3ML SQ SCH ×5 (06:00→23:19)
[2020-09-05 07:10] LABS: ABG BASE EXCESS 13.8 mmol/L (-2.0-3.0); ABG HCO3 40.9 mmol/L (21.0-28.0); ABG OXYGEN SATURATION 98.6 % (95.0-99.0); ABG PCO2 61 mmHg (35-48)
[2020-09-05] MEDS: METOPROLOL TARTRATE 25 MG TAB NG SCH ×2 (09:22→20:54)
[2020-09-05] MEDS: PANTOPRAZOLE 40 MG/VIAL IVP SCH ×2 (09:23→20:53)
[2020-09-05] MEDS: POTASSIUM CHLORIDE 10% ELIXIR 20 MEQ/15 ML UDCUP NG SCH ×2 (09:23→20:54)
[2020-09-05] MEDS: BALSAM PERU/CASTOR OIL 60 GM TUBE TP SCH ×2 (09:25→20:54)
[2020-09-05] MEDS: SOLU-MEDROL 125MG VIAL IVP SCH (09:27)
[2020-09-05] MEDS ORDERED: PERMETHRIN CREAM 5% 60GM TUBE TP SCH (20:30)
[2020-09-05] MEDS: HONEY 1 APPL/ML TUBE TP SCH (20:54)
[2020-09-06] VITALS (32 sets, daily range): BP systolic 96–126; BP diastolic 56–78
[2020-09-06] MEDS: HEPARIN 5,000 UNIT VIAL SQ SCH ×2 (02:10→15:15)
[2020-09-06] MEDS: METOCLOPRAMIDE 10 MG/2 ML VIAL IVP SCH ×4 (04:09→22:25)
[2020-09-06] MEDS: CHLORHEXIDINE GLUCONATE 473 ML MOUTHWASH MM SCH ×4 (05:52→23:25)
[2020-09-06] MEDS: INSULIN HUMULIN R 100 UNIT/ML 3ML SQ SCH ×4 (05:52→23:24)
[2020-09-06] MEDS: ARTIFICAL TEARS SOL 15 ML OU SCH ×4 (05:53→23:25)
[2020-09-06] MEDS: PANTOPRAZOLE 40 MG/VIAL IVP SCH ×2 (09:09→20:30)
[2020-09-06] MEDS: SOLU-MEDROL 125MG VIAL IVP SCH (09:09)
[2020-09-06] MEDS: METOPROLOL TARTRATE 25 MG TAB NG SCH ×2 (09:10→20:31)
[2020-09-06] MEDS: BALSAM PERU/CASTOR OIL 60 GM TUBE TP SCH ×2 (09:10→20:36)
[2020-09-06] MEDS: POTASSIUM CHLORIDE 10% ELIXIR 20 MEQ/15 ML UDCUP NG SCH ×2 (09:10→20:30)
[2020-09-06] MEDS: FUROSEMIDE 20MG VIAL IV SCH ×2 (11:00→22:25)
[2020-09-06] MEDS: HONEY 1 APPL/ML TUBE TP SCH (20:36)
[2020-09-07] VITALS (28 sets, daily range): BP systolic 97–132; BP diastolic 58–81
[2020-09-07] MEDS: HEPARIN 5,000 UNIT VIAL SQ SCH ×2 (03:52→13:30)
[2020-09-07] MEDS: METOCLOPRAMIDE 10 MG/2 ML VIAL IVP SCH ×4 (03:54→21:47)
[2020-09-07 04:45] LABS: BASOPHILS % (AUTO) 0.1 % (0.0-5.0); EOSINOPHILS % (AUTO) 0.5 % (0.0-8.0); HEMATOCRIT 27.7 % (42-54); LYMPHOCYTES % (AUTO) 12.9 % (21.0-51.0); MEAN CORPUSCULAR HEMOGLOBIN 31.7 pg (27.0-33.0); MEAN CORPUSCULAR HGB CONC 32.1 g/dL (32.0-36.0); MEAN CORPUSCULAR VOLUME 98.6 fL (79-99); MONOCYTES % (AUTO) 5.5 % (3.0-13.0); NEUTROPHILS % (AUTO) 79.3 % (40.0-77.0); NUCLEATED RED BLOOD CELLS 0.4 % (0.0-0.19); PLATELET COUNT (AUTO) 110 K/uL (130-400); RED BLOOD CELL COUNT(AUTO) 2.81 MIL/uL (4.50-6.20); RED CELL DISTRIBUTION WIDTH 17.5 % (11.0-15.5); WHITE BLOOD COUNT (AUTO) 9.5 K/uL (4.8-10.8)
[2020-09-07 04:58] LABS: CREATININE 0.4 mg/dL (0.5-1.5); POTASSIUM 3.6 mmol/L (3.5-5.1)
[2020-09-07] MEDS: INSULIN HUMULIN R 100 UNIT/ML 3ML SQ SCH ×4 (06:00→23:35)
[2020-09-07] MEDS: CHLORHEXIDINE GLUCONATE 473 ML MOUTHWASH MM SCH ×4 (06:13→23:36)
[2020-09-07] MEDS: ARTIFICAL TEARS SOL 15 ML OU SCH ×4 (06:14→23:36)
[2020-09-07] MEDS: SOLU-MEDROL 125MG VIAL IVP SCH (09:11)
[2020-09-07] MEDS: PANTOPRAZOLE 40 MG/VIAL IVP SCH ×2 (09:11→20:52)
[2020-09-07] MEDS: POTASSIUM CHLORIDE 10% ELIXIR 20 MEQ/15 ML UDCUP NG SCH ×2 (09:13→20:53)
[2020-09-07] MEDS: METOPROLOL TARTRATE 25 MG TAB NG SCH ×2 (09:14→20:54)
[2020-09-07] MEDS: BALSAM PERU/CASTOR OIL 60 GM TUBE TP SCH ×2 (09:14→20:54)
[2020-09-07] MEDS: FUROSEMIDE 20MG VIAL IV SCH ×2 (09:14→23:32)
[2020-09-07 11:33] LABS: ABG BASE EXCESS 17.1 mmol/L (-2.0-3.0); ABG HCO3 44.5 mmol/L (21.0-28.0); ABG OXYGEN SATURATION 89.1 % (95.0-99.0); ABG PCO2 63 mmHg (35-48)
[2020-09-07] MEDS: HONEY 1 APPL/ML TUBE TP SCH (20:54)
[2020-09-08] VITALS (21 sets, daily range): BP systolic 89–121; BP diastolic 50–75
[2020-09-08] MEDS: HEPARIN 5,000 UNIT VIAL SQ SCH ×2 (02:51→13:40)
[2020-09-08] MEDS: METOCLOPRAMIDE 10 MG/2 ML VIAL IVP SCH ×4 (02:52→23:04)
[2020-09-08 04:45] LABS: BASOPHILS % (AUTO) 0.2 % (0.0-5.0); EOSINOPHILS % (AUTO) 0.8 % (0.0-8.0); HEMATOCRIT 29.3 % (42-54); LYMPHOCYTES % (AUTO) 18.6 % (21.0-51.0); MEAN CORPUSCULAR HEMOGLOBIN 31.2 pg (27.0-33.0); MEAN CORPUSCULAR HGB CONC 31.4 g/dL (32.0-36.0); MEAN CORPUSCULAR VOLUME 99.3 fL (79-99); NEUTROPHILS % (AUTO) 74.4 % (40.0-77.0); NUCLEATED RED BLOOD CELLS 0.7 % (0.0-0.19); PLATELET COUNT (AUTO) 132 K/uL (130-400); RED BLOOD CELL COUNT(AUTO) 2.95 MIL/uL (4.50-6.20); RED CELL DISTRIBUTION WIDTH 18.1 % (11.0-15.5); WHITE BLOOD COUNT (AUTO) 9.6 K/uL (4.8-10.8)
[2020-09-08 05:05] LABS: CREATININE 0.4 mg/dL (0.5-1.5); POTASSIUM 3.7 mmol/L (3.5-5.1)
[2020-09-08] MEDS: INSULIN HUMULIN R 100 UNIT/ML 3ML SQ SCH ×3 (06:00→18:21)
[2020-09-08] MEDS: CHLORHEXIDINE GLUCONATE 473 ML MOUTHWASH MM SCH ×3 (06:13→18:22)
[2020-09-08] MEDS: ARTIFICAL TEARS SOL 15 ML OU SCH ×3 (06:14→18:23)
[2020-09-08] MEDS: SOLU-MEDROL 125MG VIAL IVP SCH (08:32)
[2020-09-08] MEDS: METOPROLOL TARTRATE 25 MG TAB NG SCH ×2 (08:33→21:00)
[2020-09-08] MEDS: PANTOPRAZOLE 40 MG/VIAL IVP SCH ×2 (08:33→21:00)
[2020-09-08] MEDS: POTASSIUM CHLORIDE 10% ELIXIR 20 MEQ/15 ML UDCUP NG SCH ×2 (08:33→21:00)
[2020-09-08] MEDS: BALSAM PERU/CASTOR OIL 60 GM TUBE TP SCH ×2 (08:34→21:00)
[2020-09-08] MEDS: FUROSEMIDE 20MG VIAL IV SCH ×2 (11:00→23:04)
[2020-09-08] MEDS: HONEY 1 APPL/ML TUBE TP SCH (21:00)
[2020-09-09] VITALS (22 sets, daily range): BP systolic 91–123; BP diastolic 53–70
[2020-09-09] MEDS: CHLORHEXIDINE GLUCONATE 473 ML MOUTHWASH MM SCH ×4 (00:06→18:53)
[2020-09-09] MEDS: ARTIFICAL TEARS SOL 15 ML OU SCH ×4 (00:06→18:53)
[2020-09-09] MEDS: METOCLOPRAMIDE 10 MG/2 ML VIAL IVP SCH ×4 (03:31→21:50)
[2020-09-09] MEDS: HEPARIN 5,000 UNIT VIAL SQ SCH ×2 (03:31→15:00)
[2020-09-09 04:47] LABS: BASOPHILS % (AUTO) 0.2 % (0.0-5.0); EOSINOPHILS % (AUTO) 1.8 % (0.0-8.0); HEMATOCRIT 29.9 % (42-54); LYMPHOCYTES % (AUTO) 15.8 % (21.0-51.0); MEAN CORPUSCULAR HEMOGLOBIN 31.1 pg (27.0-33.0); MEAN CORPUSCULAR HGB CONC 31.1 g/dL (32.0-36.0); MONOCYTES % (AUTO) 3.5 % (3.0-13.0); NEUTROPHILS % (AUTO) 76.8 % (40.0-77.0); NUCLEATED RED BLOOD CELLS 0.5 % (0.0-0.19); PLATELET COUNT (AUTO) 128 K/uL (130-400); RED BLOOD CELL COUNT(AUTO) 2.99 MIL/uL (4.50-6.20); RED CELL DISTRIBUTION WIDTH 18.2 % (11.0-15.5); WHITE BLOOD COUNT (AUTO) 10.8 K/uL (4.8-10.8)
[2020-09-09 04:51] LABS: CREATININE 0.4 mg/dL (0.5-1.5); POTASSIUM 3.2 mmol/L (3.5-5.1)
[2020-09-09] MEDS: POTASSIUM CHLORIDE 20MEQ/100ML 100 ML IV PRN ×2 (05:57→08:42)
[2020-09-09] MEDS: INSULIN HUMULIN R 100 UNIT/ML 3ML SQ SCH ×4 (06:00→18:08)
[2020-09-09] MEDS ORDERED: 0.9% NACL 250ML 250 ML IV ONE (08:36)
[2020-09-09] MEDS: METOPROLOL TARTRATE 25 MG TAB NG SCH ×2 (08:41→20:34)
[2020-09-09] MEDS: POTASSIUM CHLORIDE 10% ELIXIR 20 MEQ/15 ML UDCUP NG SCH ×2 (08:41→20:34)
[2020-09-09] MEDS: BALSAM PERU/CASTOR OIL 60 GM TUBE TP SCH ×2 (08:41→20:35)
[2020-09-09] MEDS: SOLU-MEDROL 125MG VIAL IVP SCH (08:41)
[2020-09-09] MEDS: PANTOPRAZOLE 40 MG/VIAL IVP SCH ×2 (08:41→20:33)
[2020-09-09] MEDS: FUROSEMIDE 20MG VIAL IV SCH ×2 (11:00→23:35)
[2020-09-09] MEDS: HONEY 1 APPL/ML TUBE TP SCH (20:35)
[2020-09-10] VITALS (27 sets, daily range): BP systolic 80–129; BP diastolic 31–79
[2020-09-10] MEDS: ARTIFICAL TEARS SOL 15 ML OU SCH ×2 (00:11→06:08)
[2020-09-10] MEDS: CHLORHEXIDINE GLUCONATE 473 ML MOUTHWASH MM SCH ×2 (00:11→06:07)
[2020-09-10] MEDS: METOCLOPRAMIDE 10 MG/2 ML VIAL IVP SCH ×4 (04:15→20:29)
[2020-09-10] MEDS: HEPARIN 5,000 UNIT VIAL SQ SCH ×2 (04:17→15:06)
[2020-09-10] MEDS: INSULIN HUMULIN R 100 UNIT/ML 3ML SQ SCH ×5 (06:00→23:50)
[2020-09-10] MEDS: PANTOPRAZOLE 40 MG/VIAL IVP SCH ×2 (10:49→20:27)
[2020-09-10] MEDS: POTASSIUM CHLORIDE 10% ELIXIR 20 MEQ/15 ML UDCUP NG SCH ×2 (10:49→20:27)
[2020-09-10] MEDS: METOPROLOL TARTRATE 25 MG TAB NG SCH ×2 (10:49→20:28)
[2020-09-10] MEDS: SOLU-MEDROL 125MG VIAL IVP SCH (10:49)
[2020-09-10] MEDS: BALSAM PERU/CASTOR OIL 60 GM TUBE TP SCH ×2 (10:49→20:29)
[2020-09-10] MEDS: FUROSEMIDE 20MG VIAL IV SCH (10:50)
[2020-09-10] MEDS ORDERED: 0.9% NACL 250ML 250 ML IV ONE (14:00)
[2020-09-10] MEDS ORDERED: 0.9% NACL 500ML IV.SOLN 500 ML IV ONE (14:49)
[2020-09-10] MEDS ORDERED: 0.9% NACL 500ML IV.SOLN 500 ML IV SCH (15:00)
[2020-09-10] MEDS: HONEY 1 APPL/ML TUBE TP SCH (20:28)
[2020-09-11] VITALS (45 sets, daily range): BP systolic 75–131; BP diastolic 29–65
[2020-09-11] MEDS: HEPARIN 5,000 UNIT VIAL SQ SCH ×2 (02:33→12:45)
[2020-09-11] MEDS: METOCLOPRAMIDE 10 MG/2 ML VIAL IVP SCH ×4 (03:41→22:13)
[2020-09-11] MEDS: INSULIN HUMULIN R 100 UNIT/ML 3ML SQ SCH ×3 (06:17→17:04)
[2020-09-11] MEDS: SOLU-MEDROL 125MG VIAL IVP SCH (09:16)
[2020-09-11] MEDS: BALSAM PERU/CASTOR OIL 60 GM TUBE TP SCH ×2 (09:16→20:41)
[2020-09-11] MEDS: METOPROLOL TARTRATE 25 MG TAB NG SCH ×2 (09:16→20:28)
[2020-09-11] MEDS: PANTOPRAZOLE 40 MG TAB DR PO SCH ×2 (09:16→20:38)
[2020-09-11] MEDS: POTASSIUM CHLORIDE 10% ELIXIR 20 MEQ/15 ML UDCUP NG SCH ×2 (09:17→20:37)
[2020-09-11] MEDS: LACTATED RINGERS 1000ML 1,000 ML IV SCH (15:24)
[2020-09-11] MEDS ORDERED: COMPOUND IV REFRIGERATED 1 EACH IVSOLN MISC PRN (15:30)
[2020-09-11] MEDS ORDERED: NOREPINEPHRIN 8MG/250ML NS PMX 250 ML IV ONE (19:51)
[2020-09-11] MEDS: ZOSYN 3.375GM+NS 50ML 50 ML IV SCH (20:37)
[2020-09-11] MEDS: VANCOMYCIN 1G 1.5 GM in 0.9% NACL 250ML 250 ML IV SCH (20:39)
[2020-09-11] MEDS: HONEY 1 APPL/ML TUBE TP SCH (20:41)
[2020-09-11] MEDS ORDERED: VANCOMYCIN PROTOCOL PER PHARMACY IV SCH (21:00)
[2020-09-12] VITALS (93 sets, daily range): BP systolic 81–131; BP diastolic 41–76
[2020-09-12] MEDS: HEPARIN 5,000 UNIT VIAL SQ SCH ×2 (02:13→13:22)
[2020-09-12] MEDS: METOCLOPRAMIDE 10 MG/2 ML VIAL IVP SCH ×4 (03:00→20:59)
[2020-09-12] MEDS: ZOSYN 3.375GM+NS 50ML 50 ML IV SCH ×3 (04:13→20:32)
[2020-09-12] MEDS: INSULIN HUMULIN R 100 UNIT/ML 3ML SQ SCH ×4 (05:16→17:23)
[2020-09-12] MEDS: LACTATED RINGERS 1000ML 1,000 ML IV SCH (05:33)
[2020-09-12 05:42] LABS: CREATININE 0.4 mg/dL (0.5-1.5)
[2020-09-12] MEDS: METOPROLOL TARTRATE 25 MG TAB NG SCH ×2 (09:00→20:33)
[2020-09-12] MEDS: PANTOPRAZOLE 40 MG TAB DR PO SCH ×2 (10:02→20:34)
[2020-09-12] MEDS: POTASSIUM CHLORIDE 10% ELIXIR 20 MEQ/15 ML UDCUP NG SCH ×2 (10:02→20:33)
[2020-09-12] MEDS: BALSAM PERU/CASTOR OIL 60 GM TUBE TP SCH ×2 (10:04→20:35)
[2020-09-12] MEDS: VANCOMYCIN 1G 1.5 GM in 0.9% NACL 250ML 250 ML IV SCH ×2 (10:04→20:56)
[2020-09-12] MEDS: 1/2 NS 1000ML 1,000 ML IV SCH (14:15)
[2020-09-12 14:59] LABS: BASOPHILS % (AUTO) 0.2 % (0.0-5.0); EOSINOPHILS % (AUTO) 2.2 % (0.0-8.0); HEMATOCRIT 25.5 % (42-54); LYMPHOCYTES % (AUTO) 19.2 % (21.0-51.0); MEAN CORPUSCULAR HEMOGLOBIN 31.6 pg (27.0-33.0); MEAN CORPUSCULAR HGB CONC 30.2 g/dL (32.0-36.0); MEAN CORPUSCULAR VOLUME 104.5 fL (79-99); MONOCYTES % (AUTO) 2.5 % (3.0-13.0); NEUTROPHILS % (AUTO) 73.4 % (40.0-77.0); NUCLEATED RED BLOOD CELLS 2.5 % (0.0-0.19); PLATELET COUNT (AUTO) 141 K/uL (130-400); RED BLOOD CELL COUNT(AUTO) 2.44 MIL/uL (4.50-6.20); RED CELL DISTRIBUTION WIDTH 18.9 % (11.0-15.5)
[2020-09-12] MEDS: NOREPINEPHRIN 4MG/NS 250ML 250 ML IV SCH (17:25)
[2020-09-12] MEDS: HONEY 1 APPL/ML TUBE TP SCH (20:34)
[2020-09-13] VITALS (69 sets, daily range): BP systolic 87–148; BP diastolic 39–68
[2020-09-13] MEDS: 1/2 NS 1000ML 1,000 ML IV SCH ×3 (00:30→14:00)
[2020-09-13] MEDS: NOREPINEPHRIN 4MG/NS 250ML 250 ML IV SCH ×2 (01:25→13:59)
[2020-09-13] MEDS: HEPARIN 5,000 UNIT VIAL SQ SCH ×2 (01:31→13:59)
[2020-09-13] MEDS: METOCLOPRAMIDE 10 MG/2 ML VIAL IVP SCH ×4 (03:52→21:37)
[2020-09-13] MEDS: ZOSYN 3.375GM+NS 50ML 50 ML IV SCH ×3 (04:08→21:35)
[2020-09-13] MEDS: INSULIN HUMULIN R 100 UNIT/ML 3ML SQ SCH ×4 (05:30→17:04)
[2020-09-13] MEDS: BALSAM PERU/CASTOR OIL 60 GM TUBE TP SCH ×2 (08:24→21:37)
[2020-09-13] MEDS: PANTOPRAZOLE 40 MG TAB DR PO SCH ×2 (08:24→21:36)
[2020-09-13] MEDS: VANCOMYCIN 1G 1.5 GM in 0.9% NACL 250ML 250 ML IV SCH ×2 (08:25→21:35)
[2020-09-13] MEDS: METOPROLOL TARTRATE 25 MG TAB NG SCH ×2 (08:25→21:00)
[2020-09-13] MEDS: POTASSIUM CHLORIDE 10% ELIXIR 20 MEQ/15 ML UDCUP NG SCH ×2 (08:25→21:36)
[2020-09-13 08:51] LABS: ALBUMIN 1.6 g/dL (3.5-5.0); BILIRUBIN,TOTAL 0.5 mg/dL (0.2-1.0); CREATININE 0.4 mg/dL (0.5-1.5); POTASSIUM 3.6 mmol/L (3.5-5.1); TOTAL PROTEIN, SERUM 4.4 g/dL (6.0-8.3)
[2020-09-13] MEDS: HONEY 1 APPL/ML TUBE TP SCH (21:36)
[2020-09-14] VITALS (47 sets, daily range): BP systolic 99–142; BP diastolic 53–76
[2020-09-14] MEDS: HEPARIN 5,000 UNIT VIAL SQ SCH ×2 (01:34→15:14)
[2020-09-14] MEDS: METOCLOPRAMIDE 10 MG/2 ML VIAL IVP SCH ×3 (03:20→15:12)
[2020-09-14] MEDS: ZOSYN 3.375GM+NS 50ML 50 ML IV SCH ×3 (05:09→22:15)
[2020-09-14] MEDS: 1/2 NS 1000ML 1,000 ML IV SCH (05:10)
[2020-09-14] MEDS: NOREPINEPHRIN 4MG/NS 250ML 250 ML IV SCH (05:22)
[2020-09-14 05:30] LABS: HEMATOCRIT 22.9 % (42-54); MEAN CORPUSCULAR HEMOGLOBIN 31.2 pg (27.0-33.0); MEAN CORPUSCULAR HGB CONC 30.1 g/dL (32.0-36.0); MEAN CORPUSCULAR VOLUME 103.6 fL (79-99); NUCLEATED RED BLOOD CELLS 1.3 % (0.0-0.19); RED BLOOD CELL COUNT(AUTO) 2.21 MIL/uL (4.50-6.20); RED CELL DISTRIBUTION WIDTH 19.1 % (11.0-15.5); WHITE BLOOD COUNT (AUTO) 8.4 K/uL (4.8-10.8)
[2020-09-14 05:58] LABS: CREATININE 0.3 mg/dL (0.5-1.5); MAGNESIUM 1.9 mg/dL (1.80-2.40); PHOSPHORUS 2.9 mg/dL (2.5-4.9); POTASSIUM 3.5 mmol/L (3.5-5.1)
[2020-09-14] MEDS: INSULIN HUMULIN R 100 UNIT/ML 3ML SQ SCH ×4 (06:00→18:00)
[2020-09-14 07:05] LABS: ABG BASE EXCESS 3.5 mmol/L (-2.0-3.0); ABG HCO3 30.4 mmol/L (21.0-28.0); ABG OXYGEN SATURATION 90.7 % (95.0-99.0); ABG PCO2 55 mmHg (35-48)
[2020-09-14] MEDS ORDERED: FUROSEMIDE 20MG VIAL IV SCH (08:45)
[2020-09-14] MEDS: POTASSIUM CHLORIDE 10% ELIXIR 20 MEQ/15 ML UDCUP NG SCH ×2 (10:36→22:16)
[2020-09-14] MEDS: PANTOPRAZOLE 40 MG TAB DR PO SCH ×2 (10:36→22:16)
[2020-09-14] MEDS: VANCOMYCIN 1G 1.5 GM in 0.9% NACL 250ML 250 ML IV SCH ×2 (10:37→22:15)
[2020-09-14] MEDS: BALSAM PERU/CASTOR OIL 60 GM TUBE TP SCH ×2 (10:37→22:16)
[2020-09-14] MEDS ORDERED: FUROSEMIDE 20MG VIAL ONE (15:11)
[2020-09-14] MEDS ORDERED: DIAZEPAM 5 MG TABLET PO PRN (18:30)
[2020-09-14] MEDS: HONEY 1 APPL/ML TUBE TP SCH (22:16)
[2020-09-15] VITALS (48 sets, daily range): BP systolic 84–150; BP diastolic 46–79
[2020-09-15] MEDS: HEPARIN 5,000 UNIT VIAL SQ SCH ×2 (03:10→15:30)
[2020-09-15 04:33] LABS: ABG BASE EXCESS 5.8 mmol/L (-2.0-3.0); ABG HCO3 33.9 mmol/L (21.0-28.0); ABG OXYGEN SATURATION 89.8 % (95.0-99.0); ABG PCO2 64 mmHg (35-48)
[2020-09-15] MEDS: ZOSYN 3.375GM+NS 50ML 50 ML IV SCH ×3 (05:09→20:34)
[2020-09-15 05:27] LABS: HEMATOCRIT 34.5 % (42-54); MEAN CORPUSCULAR HEMOGLOBIN 31.1 pg (27.0-33.0); MEAN CORPUSCULAR HGB CONC 31.3 g/dL (32.0-36.0); MEAN CORPUSCULAR VOLUME 99.4 fL (79-99); NUCLEATED RED BLOOD CELLS 1.3 % (0.0-0.19); RED BLOOD CELL COUNT(AUTO) 3.47 MIL/uL (4.50-6.20); RED CELL DISTRIBUTION WIDTH 18.3 % (11.0-15.5); WHITE BLOOD COUNT (AUTO) 5.6 K/uL (4.8-10.8)
[2020-09-15 05:39] LABS: CREATININE 0.4 mg/dL (0.5-1.5); POTASSIUM 3.2 mmol/L (3.5-5.1)
[2020-09-15] MEDS: INSULIN HUMULIN R 100 UNIT/ML 3ML SQ SCH ×5 (05:47→23:24)
[2020-09-15] MEDS: NOREPINEPHRIN 4MG/NS 250ML 250 ML IV SCH (07:57)
[2020-09-15] MEDS: PANTOPRAZOLE 40 MG TAB DR PO SCH ×2 (07:58→20:35)
[2020-09-15] MEDS: POTASSIUM CHLORIDE 10% ELIXIR 20 MEQ/15 ML UDCUP NG SCH ×2 (07:59→20:35)
[2020-09-15] MEDS: VANCOMYCIN 1G 1.5 GM in 0.9% NACL 250ML 250 ML IV SCH ×2 (07:59→20:34)
[2020-09-15] MEDS: BALSAM PERU/CASTOR OIL 60 GM TUBE TP SCH ×2 (08:02→20:36)
[2020-09-15] MEDS: METOCLOPRAMIDE 10 MG/2 ML VIAL IVP SCH ×3 (08:02→22:40)
[2020-09-15] MEDS: DEXTROSE 5%-WATER 1,000 ML IV SCH ×2 (12:08→22:40)
[2020-09-15] MEDS: HONEY 1 APPL/ML TUBE TP SCH (20:36)
[2020-09-16] VITALS (81 sets, daily range): BP systolic 91–147; BP diastolic 41–78
[2020-09-16] MEDS: METOCLOPRAMIDE 10 MG/2 ML VIAL IVP SCH ×4 (02:24→21:40)
[2020-09-16] MEDS: HEPARIN 5,000 UNIT VIAL SQ SCH ×2 (02:24→13:41)
[2020-09-16] MEDS: DIAZEPAM 5 MG TABLET PO PRN (03:48)
[2020-09-16] MEDS: INSULIN HUMULIN R 100 UNIT/ML 3ML SQ SCH ×4 (05:24→23:44)
[2020-09-16] MEDS: ZOSYN 3.375GM+NS 50ML 50 ML IV SCH ×3 (05:24→21:31)
[2020-09-16 05:34] LABS: HEMATOCRIT 30.9 % (42-54); MEAN CORPUSCULAR HEMOGLOBIN 31.4 pg (27.0-33.0); MEAN CORPUSCULAR HGB CONC 31.7 g/dL (32.0-36.0); NUCLEATED RED BLOOD CELLS 0.8 % (0.0-0.19); RED BLOOD CELL COUNT(AUTO) 3.12 MIL/uL (4.50-6.20); WHITE BLOOD COUNT (AUTO) 5.3 K/uL (4.8-10.8)
[2020-09-16 05:42] LABS: CREATININE 0.4 mg/dL (0.5-1.5); POTASSIUM 3.1 mmol/L (3.5-5.1)
[2020-09-16] MEDS: VANCOMYCIN 1G 1.5 GM in 0.9% NACL 250ML 250 ML IV SCH ×2 (09:29→21:00)
[2020-09-16] MEDS: POTASSIUM CHLORIDE 10% ELIXIR 20 MEQ/15 ML UDCUP NG SCH ×2 (09:29→21:33)
[2020-09-16] MEDS: DEXTROSE 5%-WATER 1,000 ML IV SCH ×2 (09:30→17:04)
[2020-09-16] MEDS: BALSAM PERU/CASTOR OIL 60 GM TUBE TP SCH ×2 (09:30→21:35)
[2020-09-16] MEDS: PANTOPRAZOLE 40 MG TAB DR PO SCH ×2 (09:30→21:33)
[2020-09-16] MEDS: FUROSEMIDE 20MG VIAL IV SCH ×2 (13:38→21:32)
[2020-09-16] MEDS: ALBUMIN (HUMAN) 25% 100 ML IV SCH ×2 (13:39→21:31)
[2020-09-16] MEDS: FENTANYL CITRATE PF 50 MCG/1 ML 2ML VIAL IVP PRN (14:02)
[2020-09-16] MEDS: HONEY 1 APPL/ML TUBE TP SCH (21:32)
[2020-09-17] VITALS (75 sets, daily range): BP systolic 95–150; BP diastolic 35–70
[2020-09-17] MEDS: VANCOMYCIN 1G 1.5 GM in 0.9% NACL 250ML 250 ML IV SCH ×2 (02:46→22:00)
[2020-09-17] MEDS: HEPARIN 5,000 UNIT VIAL SQ SCH ×2 (03:06→14:10)
[2020-09-17] MEDS: INSULIN HUMULIN R 100 UNIT/ML 3ML SQ SCH ×4 (06:00→23:56)
[2020-09-17] MEDS: METOCLOPRAMIDE 10 MG/2 ML VIAL IVP SCH ×4 (06:09→23:55)
[2020-09-17] MEDS: ALBUMIN (HUMAN) 25% 100 ML IV SCH ×3 (06:10→23:50)
[2020-09-17] MEDS: FUROSEMIDE 20MG VIAL IV SCH ×3 (06:10→22:00)
[2020-09-17] MEDS: ZOSYN 3.375GM+NS 50ML 50 ML IV SCH ×3 (06:45→23:48)
[2020-09-17 06:46] LABS: HEMATOCRIT 28.3 % (42-54); MEAN CORPUSCULAR HEMOGLOBIN 30.7 pg (27.0-33.0); MEAN CORPUSCULAR HGB CONC 30.7 g/dL (32.0-36.0); NUCLEATED RED BLOOD CELLS 0.4 % (0.0-0.19); RED BLOOD CELL COUNT(AUTO) 2.83 MIL/uL (4.50-6.20); RED CELL DISTRIBUTION WIDTH 17.5 % (11.0-15.5); WHITE BLOOD COUNT (AUTO) 5.1 K/uL (4.8-10.8)
[2020-09-17 07:00] LABS: CREATININE 0.4 mg/dL (0.5-1.5); MAGNESIUM 1.7 mg/dL (1.80-2.40); PHOSPHORUS 2.8 mg/dL (2.5-4.9)
[2020-09-17 07:25] LABS: POTASSIUM 2.9 mmol/L (3.5-5.1)
[2020-09-17 07:25] LABS: ABG BASE EXCESS 11.9 mmol/L (-2.0-3.0); ABG HCO3 40.5 mmol/L (21.0-28.0); ABG OXYGEN SATURATION 93.3 % (95.0-99.0); ABG PCO2 70 mmHg (35-48)
[2020-09-17] MEDS: POTASSIUM CHLORIDE 20MEQ/100ML 100 ML IV PRN ×2 (07:54→10:35)
[2020-09-17] MEDS: PANTOPRAZOLE 40 MG TAB DR PO SCH ×2 (09:00→23:54)
[2020-09-17] MEDS ORDERED: PANTOPRAZOLE 40 MG/VIAL ONE (09:54)
[2020-09-17] MEDS: FENTANYL CITRATE PF 50 MCG/1 ML 2ML VIAL IVP PRN (10:35)
[2020-09-17] MEDS: POTASSIUM CHLORIDE 10% ELIXIR 20 MEQ/15 ML UDCUP NG SCH ×2 (10:36→23:54)
[2020-09-17] MEDS: BALSAM PERU/CASTOR OIL 60 GM TUBE TP SCH ×2 (10:38→21:00)
[2020-09-17 12:17] LABS: ABG BASE EXCESS 3.7 mmol/L (-2.0-3.0); ABG HCO3 31.6 mmol/L (21.0-28.0); ABG OXYGEN SATURATION 91.8 % (95.0-99.0); ABG PCO2 62 mmHg (35-48)
[2020-09-17 13:53] LABS: ALBUMIN 2.6 g/dL (3.5-5.0); BILIRUBIN,TOTAL 0.7 mg/dL (0.2-1.0); CREATININE 0.5 mg/dL (0.5-1.5); POTASSIUM 3.7 mmol/L (3.5-5.1); TOTAL PROTEIN, SERUM 5.5 g/dL (6.0-8.3)
[2020-09-17] MEDS: DEXTROSE 5%-WATER 1,000 ML IV SCH (14:00)
[2020-09-17] MEDS: HONEY 1 APPL/ML TUBE TP SCH (23:51)
[2020-09-18] VITALS (81 sets, daily range): BP systolic 78–152; BP diastolic 30–79
[2020-09-18] MEDS: DEXTROSE 5%-WATER 1,000 ML IV SCH ×3 (02:55→22:38)
[2020-09-18] MEDS: HEPARIN 5,000 UNIT VIAL SQ SCH ×2 (03:28→13:32)
[2020-09-18] MEDS: METOCLOPRAMIDE 10 MG/2 ML VIAL IVP SCH ×4 (03:40→22:09)
[2020-09-18] MEDS: ZOSYN 3.375GM+NS 50ML 50 ML IV SCH ×3 (05:00→21:11)
[2020-09-18] MEDS: FUROSEMIDE 20MG VIAL IV SCH ×3 (05:02→21:18)
[2020-09-18] MEDS: ALBUMIN (HUMAN) 25% 100 ML IV SCH ×3 (05:02→21:18)
[2020-09-18 06:36] LABS: HEMATOCRIT 30.1 % (42-54); MEAN CORPUSCULAR HEMOGLOBIN 31.9 pg (27.0-33.0); MEAN CORPUSCULAR HGB CONC 31.6 g/dL (32.0-36.0); NUCLEATED RED BLOOD CELLS 0.3 % (0.0-0.19); RED BLOOD CELL COUNT(AUTO) 2.98 MIL/uL (4.50-6.20); RED CELL DISTRIBUTION WIDTH 17.4 % (11.0-15.5); WHITE BLOOD COUNT (AUTO) 5.8 K/uL (4.8-10.8)
[2020-09-18 06:51] LABS: CREATININE 0.4 mg/dL (0.5-1.5)
[2020-09-18] MEDS ORDERED: PANTOPRAZOLE 40 MG/VIAL ONE (08:31)
[2020-09-18] MEDS: INSULIN HUMULIN R 100 UNIT/ML 3ML SQ SCH ×3 (08:39→18:06)
[2020-09-18] MEDS: BALSAM PERU/CASTOR OIL 60 GM TUBE TP SCH ×2 (08:42→21:00)
[2020-09-18] MEDS: POTASSIUM CHLORIDE 10% ELIXIR 20 MEQ/15 ML UDCUP NG SCH ×2 (08:42→21:12)
[2020-09-18] MEDS: FENTANYL CITRATE PF 50 MCG/1 ML 2ML VIAL IVP PRN ×2 (08:43→13:30)
[2020-09-18] MEDS: PANTOPRAZOLE 40 MG TAB DR PO SCH ×2 (08:44→21:12)
[2020-09-18] MEDS: POTASSIUM CHLORIDE 20MEQ/100ML 100 ML IV PRN (08:45)
[2020-09-18] MEDS: VANCOMYCIN 1G 1.5 GM in 0.9% NACL 250ML 250 ML IV SCH ×2 (08:47→21:11)
[2020-09-18] MEDS: DEXMEDETOMIDINE HCL 400 MCG in 0.9%NACL 100ML 100 ML IV SCH (14:52)
[2020-09-18] MEDS: NOREPINEPHRIN 4MG/NS 250ML 250 ML IV SCH (19:39)
[2020-09-18] MEDS: HONEY 1 APPL/ML TUBE TP SCH (21:13)
[2020-09-19] VITALS (50 sets, daily range): BP systolic 93–125; BP diastolic 49–78
[2020-09-19] MEDS: HEPARIN 5,000 UNIT VIAL SQ SCH ×2 (02:26→12:56)
[2020-09-19] MEDS: ALBUMIN (HUMAN) 25% 100 ML IV SCH ×3 (05:03→21:42)
[2020-09-19] MEDS: METOCLOPRAMIDE 10 MG/2 ML VIAL IVP SCH ×4 (05:03→21:41)
[2020-09-19] MEDS: FUROSEMIDE 20MG VIAL IV SCH ×3 (05:04→21:42)
[2020-09-19] MEDS: ZOSYN 3.375GM+NS 50ML 50 ML IV SCH ×3 (05:04→21:15)
[2020-09-19] MEDS: INSULIN HUMULIN R 100 UNIT/ML 3ML SQ SCH ×4 (06:00→18:00)
[2020-09-19 06:46] LABS: CREATININE 0.5 mg/dL (0.5-1.5); MAGNESIUM 1.7 mg/dL (1.80-2.40); POTASSIUM 3.1 mmol/L (3.5-5.1)
[2020-09-19] MEDS: PANTOPRAZOLE 40 MG TAB DR PO SCH ×2 (08:23→21:14)
[2020-09-19] MEDS: POTASSIUM CHLORIDE 10% ELIXIR 20 MEQ/15 ML UDCUP NG SCH ×2 (08:23→21:14)
[2020-09-19] MEDS: VANCOMYCIN 1G 1.5 GM in 0.9% NACL 250ML 250 ML IV SCH ×2 (09:00→21:00)
[2020-09-19] MEDS: BALSAM PERU/CASTOR OIL 60 GM TUBE TP SCH ×2 (12:00→21:21)
[2020-09-19] MEDS: POTASSIUM CHLORIDE 20MEQ/100ML 100 ML IV PRN ×2 (12:45→12:53)
[2020-09-19] MEDS: DEXMEDETOMIDINE HCL 400 MCG in 0.9%NACL 100ML 100 ML IV SCH (12:47)
[2020-09-19] MEDS ORDERED: MIDAZOLAM 100MG-0.9% NS 100ML 50 ML IV PRN (15:45)
[2020-09-19] MEDS ORDERED: FENTANYL CITRATE PF 0.05 MG/ML 1,000 MCG in 0.9%NACL 100ML 100 ML IV PRN (15:45)
[2020-09-19] MEDS: DEXTROSE 5%-WATER 1,000 ML IV SCH (16:00)
[2020-09-19] MEDS ORDERED: FENTANYL 2500MCG+NS 250ML 250 ML IV SCH (16:00)
[2020-09-19] MEDS ORDERED: MIDAZOLAM 100MG-0.9% NS 100ML 100 ML IV SCH (16:15)
[2020-09-19] MEDS: NOREPINEPHRIN 4MG/NS 250ML 250 ML IV SCH (17:47)
[2020-09-19] MEDS: HONEY 1 APPL/ML TUBE TP SCH (21:21)
[2020-09-20] VITALS (41 sets, daily range): BP systolic 83–151; BP diastolic 47–81
[2020-09-20] MEDS: HEPARIN 5,000 UNIT VIAL SQ SCH ×2 (01:36→13:18)
[2020-09-20] MEDS: DEXMEDETOMIDINE HCL 400 MCG in 0.9%NACL 100ML 100 ML IV SCH ×4 (02:09→17:21)
[2020-09-20] MEDS: METOCLOPRAMIDE 10 MG/2 ML VIAL IVP SCH ×4 (03:05→21:02)
[2020-09-20] MEDS: ZOSYN 3.375GM+NS 50ML 50 ML IV SCH ×3 (04:16→20:58)
[2020-09-20] MEDS: NOREPINEPHRIN 4MG/NS 250ML 250 ML IV SCH ×3 (04:24→17:21)
[2020-09-20] MEDS: ALBUMIN (HUMAN) 25% 100 ML IV SCH ×2 (05:07→13:17)
[2020-09-20] MEDS: FUROSEMIDE 20MG VIAL IV SCH ×2 (05:08→13:16)
[2020-09-20 05:57] LABS: ALBUMIN 3.3 g/dL (3.5-5.0); CREATININE 0.7 mg/dL (0.5-1.5); POTASSIUM 3.7 mmol/L (3.5-5.1)
[2020-09-20] MEDS: INSULIN HUMULIN R 100 UNIT/ML 3ML SQ SCH ×4 (06:00→17:27)
[2020-09-20] MEDS: BALSAM PERU/CASTOR OIL 60 GM TUBE TP SCH ×2 (09:55→21:01)
[2020-09-20] MEDS: VANCOMYCIN 1G 1.5 GM in 0.9% NACL 250ML 250 ML IV SCH ×2 (09:55→20:58)
[2020-09-20] MEDS: POTASSIUM CHLORIDE 10% ELIXIR 20 MEQ/15 ML UDCUP NG SCH ×2 (09:55→20:59)
[2020-09-20] MEDS: PANTOPRAZOLE 40 MG TAB DR PO SCH ×2 (09:55→20:59)
[2020-09-20] MEDS ORDERED: HONEY 1 APPL/ML TUBE TP SCH (16:00)
[2020-09-20] MEDS: HONEY 1 APPL/ML TUBE TP SCH (21:00)
[2020-09-21] VITALS (43 sets, daily range): BP systolic 71–115; BP diastolic 45–73
[2020-09-21] MEDS: METOCLOPRAMIDE 10 MG/2 ML VIAL IVP SCH ×4 (03:45→21:41)
[2020-09-21] MEDS: ZOSYN 3.375GM+NS 50ML 50 ML IV SCH ×3 (04:53→21:36)
[2020-09-21] MEDS: NOREPINEPHRIN 4MG/NS 250ML 250 ML IV SCH ×5 (04:55→19:41)
[2020-09-21] MEDS: HEPARIN 5,000 UNIT VIAL SQ SCH ×2 (05:12→14:00)
[2020-09-21] MEDS: DEXMEDETOMIDINE HCL 400 MCG in 0.9%NACL 100ML 100 ML IV SCH (05:13)
[2020-09-21] MEDS: INSULIN HUMULIN R 100 UNIT/ML 3ML SQ SCH ×4 (06:00→17:38)
[2020-09-21 06:38] LABS: ABG BASE EXCESS 8.9 mmol/L (-2.0-3.0); ABG HCO3 39.7 mmol/L (21.0-28.0); ABG OXYGEN SATURATION 91.7 % (95.0-99.0); ABG PCO2 88 mmHg (35-48)
[2020-09-21 07:14] LABS: BASOPHILS % (AUTO) 0.5 % (0.0-5.0); EOSINOPHILS % (AUTO) 0.2 % (0.0-8.0); HEMATOCRIT 29.8 % (42-54); LYMPHOCYTES % (AUTO) 15.4 % (21.0-51.0); MEAN CORPUSCULAR HGB CONC 29.2 g/dL (32.0-36.0); MONOCYTES % (AUTO) 4.5 % (3.0-13.0); NUCLEATED RED BLOOD CELLS 0.4 % (0.0-0.19); PLATELET COUNT (AUTO) 131 K/uL (130-400); RED BLOOD CELL COUNT(AUTO) 2.81 MIL/uL (4.50-6.20); RED CELL DISTRIBUTION WIDTH 17.3 % (11.0-15.5); WHITE BLOOD COUNT (AUTO) 8.4 K/uL (4.8-10.8)
[2020-09-21 07:27] LABS: ALBUMIN 3.2 g/dL (3.5-5.0); BILIRUBIN,TOTAL 0.7 mg/dL (0.2-1.0); CREATININE 1.2 mg/dL (0.5-1.5); CRP QUANTITATIVE 65.3 mg/L (0.00-9.0); POTASSIUM 4.7 mmol/L (3.5-5.1); TOTAL PROTEIN, SERUM 5.9 g/dL (6.0-8.3)
[2020-09-21] MEDS: POTASSIUM CHLORIDE 10% ELIXIR 20 MEQ/15 ML UDCUP NG SCH ×2 (08:12→21:35)
[2020-09-21] MEDS: BALSAM PERU/CASTOR OIL 60 GM TUBE TP SCH ×2 (08:13→21:27)
[2020-09-21] MEDS: FENTANYL CITRATE PF 50 MCG/1 ML 2ML VIAL IVP PRN (08:13)
[2020-09-21] MEDS: PANTOPRAZOLE 40 MG TAB DR PO SCH ×2 (08:13→21:36)
[2020-09-21] MEDS: DIAZEPAM 5 MG TABLET PO PRN (08:13)
[2020-09-21] MEDS: VANCOMYCIN 1G 1.5 GM in 0.9% NACL 250ML 250 ML IV SCH ×2 (08:14→21:36)
[2020-09-21] MEDS ORDERED: TRYPSIN/BALSAM PERU/CASTOR OIL OINT 60GM TUBE TP SCH (09:00)
[2020-09-21] MEDS ORDERED: PHARMACY COMMUNICATION MISC SCH (13:30)
[2020-09-21] MEDS ORDERED: DEXMEDETOMIDINE HCL 400 MCG in 0.9%NACL 100ML 100 ML IV SCH (13:30)
[2020-09-21] MEDS: FUROSEMIDE 20MG VIAL IV SCH ×2 (13:36→21:26)
[2020-09-21] MEDS: ALBUMIN (HUMAN) 25% 100 ML IV SCH ×2 (13:36→21:36)
[2020-09-21] MEDS ORDERED: MIDAZOLAM 100MG-0.9% NS 100ML 100ML BAG IV ONE (21:15)
[2020-09-21] MEDS: HONEY 1 APPL/ML TUBE TP SCH (21:27)
[2020-09-21] MEDS ORDERED: MIDAZOLAM 100MG-0.9% NS 100ML 100 ML IV SCH (21:30)
[2020-09-22] MEDS: INSULIN HUMULIN R 100 UNIT/ML 3ML SQ SCH
[2020-09-22 00:04] VITALS: BP 83/54
[2020-09-22 00:09] VITALS: BP 82/50
[2020-09-22 00:21] VITALS: BP 77/42
[2020-09-22 00:36] VITALS: BP 95/52
[2020-09-22] MEDS ORDERED: MIDAZOLAM 100MG-0.9% NS 100ML 100 ML IV SCH (00:45)
[2020-09-22 00:51] VITALS: BP 72/41
[2020-09-22 01:07] VITALS: BP 67/31
[2020-09-22] MEDS: HEPARIN 5,000 UNIT VIAL SQ SCH (02:00)
== END 2020-09-22 01:53 | disposition expired | DRG 870 ==
LOC: EDH 08:55 → EDHIP 10:59 → OBSVTOIN 10:59 → 2AH 07-31 12:01 → 2CV 08-12 11:48
PROVIDERS: ADMIT Internal Medicine; ATTEND Internal Medicine
PROC: 5A0945A Assistance with Respiratory Ventilation, 24-96 Consecutive Hours, High Flow/Velocity Cannula (ICD-10-PCS; 2020-07-29)
PROC: 5A0955A Assistance with Respiratory Ventilation, Greater than 96 Consecutive Hours, High Flow/Velocity Cannula (ICD-10-PCS; 2020-07-31)
PROC: 05H633Z Insertion of Infusion Device into Left Subclavian Vein, Percutaneous Approach (ICD-10-PCS; 2020-08-04)
PROC: 5A09457 Assistance with Respiratory Ventilation, 24-96 Consecutive Hours, Continuous Positive Airway Pressure (ICD-10-PCS; 2020-08-07)
PROC: 5A1955Z Respiratory Ventilation, Greater than 96 Consecutive Hours (ICD-10-PCS; principal; 2020-08-10)
PROC: 0BH17EZ Insertion of Endotracheal Airway into Trachea, Via Natural or Artificial Opening (ICD-10-PCS; 2020-08-10)
PROC: 30233N1 Transfusion of Nonautologous Red Blood Cells into Peripheral Vein, Percutaneous Approach (ICD-10-PCS; 2020-08-14)
DX: A41.9 Sepsis, unspecified organism (principal); U07.1 COVID-19; J80 Acute respiratory distress syndrome; J12.82 Pneumonia due to coronavirus disease 2019; E43 Unspecified severe protein-calorie malnutrition; R65.21 Severe sepsis with septic shock; M62.82 Rhabdomyolysis; E87.0 Hyperosmolality and hypernatremia; E87.1 Hypo-osmolality and hyponatremia; G93.1 Anoxic brain damage, not elsewhere classified; I24.8 Other forms of acute ischemic heart disease; I47.1 Supraventricular tachycardia; L97.919 Non-pressure chronic ulcer of unspecified part of right lower leg with unspecified severity; K92.2 Gastrointestinal hemorrhage, unspecified; I46.9 Cardiac arrest, cause unspecified; E03.9 Hypothyroidism, unspecified; I10 Essential (primary) hypertension; D64.9 Anemia, unspecified; E66.01 Morbid (severe) obesity due to excess calories; L89.150 Pressure ulcer of sacral region, unstageable; E87.70 Fluid overload, unspecified; F41.9 Anxiety disorder, unspecified; J98.2 Interstitial emphysema; Z79.899 Other long term (current) drug therapy; Z74.01 Bed confinement status; Z68.30 Body mass index [BMI] 30.0-30.9, adult
CPT/HCPCS: 31500; 36415; 36430; 36569; 36600; 70450; 71045; 80048; 80053; 80076; 81001; 82150; 82435; 82550; 82728; 82803; 82947; 82948; 83605; 83615; 83690; 83735; 83874; 83880; 84100; 84132; 84145; 84295; 84484; 85018; 85025; 85027; 85378; 85610; 85730; 86140; 86850; 86900; 86901; 86923; 87040; 87077; 87088; 87186; 87426; 87804; 93005; 93306; 93970; 94002; 94003; 94660; C1751; C1894; C9113; G0378; J0153; J0456; J0696; J1100; J1644; J1650; J1815; J1940; J2185; J2250; J2405; J2543; J2704; J2765; J2930; J3010; J3370; J3475; J3480; J3490; J7030; J7040; J7050; J7070; J7120; P9016; P9046; P9047; Q0167; U0003